=== PATIENT | male | born 1995 | race Caucasian/White ===

== ENCOUNTER 2017-05-20 14:56 | Inpatient (IN) | payer OTHER ==
[~2017-05-20] VITALS: Ht 180.3 cm; Wt 85.2 kg
[~2017-05-20 14:56] MED LIST: PHENYLEPH/NS 1000 MCG/10 ML SYR IV ONE; PROPOFOL 200 MG/20 ML AMP IV ONE; ROCURONIUM INJ 50 MG/5 ML SYRINGE IV PUSH ONE
[2017-05-20] MEDS ORDERED: IOHEXOL 350 MG/ML 10 ML VIAL (for RAD DIAG) IVCONTRAST ONE (14:57)
[2017-05-20] MEDS ORDERED: PROPOFOL 200 MG/20 ML AMP ONE (14:59)
[2017-05-20] MEDS ORDERED: KETAMINE HCL 500 MG/5 ML VIAL ONE (15:03)
[2017-05-20] MEDS ORDERED: PROPOFOL 1000 MG/100 ML INJ 100 ML ONE (15:03)
[2017-05-20 15:05] VITALS: O2SAT 100
[2017-05-20] MEDS ORDERED: ceFAZolin 2 GM PREMIX 50 ML ONE (15:08)
[2017-05-20] MEDS ORDERED: GENTAMICIN 80 MG PREMIX 100 ML ONE (15:08)
[2017-05-20] MEDS ORDERED: SUCCINYLCHOLINE CHLORIDE 100 MG/5 ML SYRINGE ONE (15:16)
[2017-05-20] MEDS ORDERED: ROCURONIUM INJ 50 MG/5 ML VIAL ONE (15:17)
[2017-05-20] MEDS ORDERED: ETOMIDATE 20 MG/10 ML VIAL ONE (15:17)
[2017-05-20 15:22] LABS: AUTOMATED NEUTROPHIL # 10.2 TH/MM3 (1.8-7.7); BASOPHIL # 0.1 TH/MM3 (0-0.2); BASOPHIL % 0.6 % (0.0-2.0); EOSINOPHIL # 0.1 TH/MM3 (0-0.4); EOSINOPHIL % 0.4 % (0.0-4.0); HEMATOCRIT 35.9 % (39.0-51.0); HEMOGLOBIN 11.8 GM/DL (13.0-17.0); LYMPH % 34.8 % (9.0-44.0); LYMPHOCYTE # 6.1 TH/MM3 (1.0-4.8); MEAN CELL VOLUME 84.2 FL (80.0-100.0); MEAN CORPUSCULAR HEMOGLOBIN 27.6 PG (27.0-34.0); MEAN CORPUSCULAR HGB CONC 32.8 % (32.0-36.0); MEAN PLATELET VOLUME 7.5 FL (7.0-11.0); MONO % 5.6 % (0.0-8.0); NEUT % 58.6 % (16.0-70.0); PLATELET COUNT 404 TH/MM3 (150-450); RED BLOOD COUNT 4.26 MIL/MM3 (4.50-5.90); RED CELL DISTRIBUTION WIDTH 14.4 % (11.6-17.2); WHITE BLOOD COUNT 17.5 TH/MM3 (4.0-11.0)
[2017-05-20] MEDS: LACTATED RINGER'S 1000 ML INJ 1,000 ML IV SCH ×2 (15:31→23:31)
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
[2017-05-20 15:43] LABS: INTERNATIONAL NORMALIZED RATIO 1.2 RATIO; PROTHROMBIN TIME - PATIENT 11.8 SEC (9.8-11.6)
[2017-05-20 15:44] LABS: BANDS 1 % (0-6); LYMPHOCYTES 36 % (9-44); MONOCYTES 6 % (0-8); NEUTROPHIL # MANUAL DIFF 10.2 TH/MM3 (1.8-7.7); POLYS (SEG NEUTROPHILS) 57 % (16-70)
[2017-05-20] MEDS ORDERED: CHLORHEXIDINE GLUCONATE 2 % 1 PACK (2 CLOTHS) TOP PRN (15:45)
[2017-05-20] MEDS ORDERED: SODIUM CHLORIDE 0.9% FLUSH 10 ML FLUSH IV FLUSH PRN (15:45)
[2017-05-20] MEDS ORDERED: ENALAPRILAT 1.25 MG/ML VIAL IV PUSH PRN (15:45)
[2017-05-20] MEDS ORDERED: ONDANSETRON HCL 4 MG/2 ML VIAL IV PUSH PRN (15:45)
[2017-05-20] MEDS ORDERED: fentaNYL DRIP 250 ML IV PRN (15:45)
[2017-05-20] MEDS ORDERED: PROPOFOL 1000 MG/100 ML INJ 100 ML IV PRN (15:45)
[2017-05-20] MEDS ORDERED: MISCELLANEOUS NURSING INFORMATION XX SCH (15:45)
[2017-05-20] MEDS ORDERED: MAGNESIUM HYDROXIDE SUSP 30 ML CUP PO PRN (15:45)
[2017-05-20 16:00] VITALS: BP 135/96; PULSE 80; RESP 16; TEMP 95.9; O2SAT 100
[2017-05-20] MEDS: PROPOFOL 1000 MG/100 ML IV PRN ×3 (16:00→21:47)
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
[2017-05-20 16:05] VITALS: O2SAT 100
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
[2017-05-20] MEDS: fentaNYL 2,500 MCG/NS 250 ML IV PRN (16:10)
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
[2017-05-20] MEDS ORDERED: POTASSIUM CHLORIDE 25 MEQ EFFERVESCENT TAB PO PRN (17:15)
[2017-05-20] MEDS ORDERED: MAGNESIUM SULFATE INJ 4 GM in SODIUM CHLORIDE 0.9% INJ 92 ML IV PRN (17:15)
[2017-05-20] MEDS ORDERED: MAGNESIUM SULFATE INJ 2 GM in SODIUM CHLORIDE 0.9% INJ 96 ML IV PRN (17:15)
[2017-05-20] MEDS ORDERED: POTASSIUM PHOSPHATE MONOBASIC 500 MG TAB PO PRN (17:15)
[2017-05-20] MEDS ORDERED: POTASSIUM PHOSPHATE MONOBASIC 500 MG TAB PO/TUBE PRN (17:15)
[2017-05-20] MEDS ORDERED: POTASSIUM PHOSPHATE INJ 30 MMOL in SODIUM CHLOR 0.9% 250 ML INJ 250 ML IV PRN (17:15)
[2017-05-20] MEDS ORDERED: MAGNESIUM OXIDE 400 MG TAB PO PRN (17:15)
[2017-05-20] MEDS ORDERED: SODIUM PHOSPHATE INJ 30 MMOL in SODIUM CHLOR 0.9% 250 ML INJ 240 ML IV PRN (17:15)
[2017-05-20] MEDS ORDERED: POTASSIUM CHLOR 40 MEQ PREMIX 100 ML IV PRN ×2 (17:15)
[2017-05-20] MEDS ORDERED: POTASSIUM CHLOR 20 MEQ PREMIX 100 ML IV PRN ×2 (17:15)
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
[2017-05-20 17:49] LABS: ALKALINE PHOSPHATASE 61 U/L (45-117); TOTAL BILIRUBIN ADULT 0.2 MG/DL (0.2-1.0)
[2017-05-20] MEDS ORDERED: ACETAMINOPHEN 1000 MG/100 ML 100 ML IV ONE (17:56)
[2017-05-20 18:02] LABS: ALBUMIN 3.3 GM/DL (3.4-5.0); ALT (GPT) 62 U/L (12-78); AST (GOT) 72 U/L (15-37); BICARBONATE 23.7 MEQ/L (21.0-32.0); BLOOD UREA NITROGEN 10 MG/DL (7-18); CALCIUM 7.9 MG/DL (8.5-10.1); CHLORIDE 109 MEQ/L (98-107); GLOMERULAR FILTRATION RATE 64 ML/MIN (>89); GLUCOSE,RANDOM 96 MG/DL (74-106); MAGNESIUM 1.7 MG/DL (1.5-2.5); PHOSPHORUS 2.4 MG/DL (2.5-4.9); SODIUM (NA) 140 MEQ/L (136-145)
[2017-05-20] MEDS ORDERED: RASS Change Order XX ONE (18:30)
[2017-05-20] MEDS: MIDAZOLAM 100 MG/NS 100 ML DRIP Premix IV PRN (18:35)
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
[2017-05-20 19:53] VITALS: O2SAT 100
[2017-05-20 20:00] VITALS: BP 104/58; PULSE 96; RESP 16; TEMP 97.3; O2SAT 100
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
[2017-05-20] MEDS ORDERED: DOCUSATE SODIUM 100 MG CAP PO SCH (21:00)
[2017-05-20] MEDS: CHLORHEXIDINE 0.12% (ORAL KIT) 15 ML CUP MT SCH (21:08)
[2017-05-20 22:00] VITALS: O2SAT 100
[2017-05-20] MEDS ORDERED: ceFAZolin INJ 1,000 MG VIAL ONE (22:36)
[2017-05-21] VITALS (16 sets, daily range): BP systolic 82–108; BP diastolic 49–59; PULSE 84–118; RESP 16–18; TEMP 97.2–100.8; O2SAT 100
--- NOTE | 2017-05-21 00:43 | RADRPT ---
EXAM DATE/TIME: 05/20/2017 23:51 [facility] COMPARISON: No previous studies available for comparison. INDICATIONS : External fixation with temporary plate internal fixation of a right tibia fracture. MEDICAL HISTORY : None. SURGICAL HISTORY : None. ENCOUNTER: Subsequent ACUITY: 1 day PAIN SCORE: Non-responsive. LOCATION: Right tibia FINDINGS: 4 spot fluoroscopic images obtained in the operating room during a procedure demonstrates pin related to external fixator overlying the proximal tibia. There is a sideplate along the mid tibia traversin g a fracture. A comminuted fibular fracture is seen. CONCLUSION: Spot fluoroscopic images, as above. Del Wilson MD on May 21, 2017 at 0:40 Board Certified Radiologist. This report was verified electronically.
[2017-05-21] MEDS ORDERED: SODIUM CHLORIDE 0.9% FLUSH 10 ML FLUSH IV FLUSH PRN ×3 (00:45)
[2017-05-21] MEDS ORDERED: MORPHINE SULFATE 8 MG/ML INJ IV PUSH PRN (00:45)
[2017-05-21] MEDS ORDERED: BISACODYL 10 MG SUPP RECTAL PRN ×3 (00:45)
[2017-05-21] MEDS ORDERED: PROMETHAZINE HCL 25 MG TAB PO PRN (00:45)
[2017-05-21] MEDS ORDERED: ZOLPIDEM TARTRATE 5 MG TAB PO PRN (00:45)
[2017-05-21] MEDS ORDERED: Post-op Orders (for Pharmacy) XX ONE ×3 (00:45)
[2017-05-21] MEDS ORDERED: MAGNESIUM HYDROXIDE SUSP 30 ML CUP PO PRN ×3 (00:45)
[2017-05-21] MEDS ORDERED: oxyCODONE/ACETAMINOPHEN 5 MG/325 MG TAB PO PRN ×2 (00:45)
[2017-05-21] MEDS ORDERED: LACTULOSE SYRUP 20 GM/30 ML CUP PO PRN ×3 (00:45)
[2017-05-21] MEDS ORDERED: SENNOSIDES 8.6 MG TAB PO PRN ×3 (00:45)
--- NOTE | 2017-05-21 00:45 | PD.OP ---
cc: Edy Segovia Jr., MD Operative Report Date of Surgery: May 21, 2017 Preoperative Diagnosis: #1 closed right femoral shaft fracture #2 grade 2 open right tibial shaft fracture Postoperative Diagnosis: Same Procedure: #1 irrigation debridement right tibia #2 external fixation right tibia #3 external fixation right femur Anesthesia: Gen. Surgeon: Edy Segovia Motor Overhauler(s): ALEXSANDRA Payne The surgical procedure was assisted by my Advanced Registered Nurse Practitioner. My TANKROOM TENDER presence was necessary throughout this case for the manipulation and positioning of the surgical extremity. My TANKROOM TENDER was assisting me throughout the duration of this procedure. The skill set of an Advance Registered Nurse Practitioner was medically necessary to complete this procedure. During the surgical case, the technology project manager was working at the back table and the Advance Registered Nurse Practitioner was directly assisting me. Resident Surgeon: None Operation and Findings: This patient sustained severe injury to the right lower extremity resulting in right grade 2 open tibial shaft fracture as well as a ipsilateral right femoral shaft fracture. Risk and benefits of surgery were discussed in depth with the patient's mother and consent was confirmed. Surgical site was marked. Patient was brought to operating room and placed on the OR table. Patient was given IV sedation and GETA. Patient received IV antibiotics and timeout procedure was performed. Operative leg was prepped with alcohol followed by Hibiclens and draped in the usual sterile fashion. Procedure started with irrigation and debridement of the right tibia. This anterior tibia wounds where extended. The bone and were delivered. The bone ends as well as the wounds were thoroughly irrigated and debrided with a curette to the extent of periosteal stripping and soft tissue degloving. Two small incisions were made along the anterior tibia and anterior cortex of the distal femur. Soft tissue was dissected bluntly. Cannulas were placed down to the cortex of bone. Pin sites were predrilled. Synthes RYAN-coated pins were placed into the 2 tibia fracture fragments, and femurs. fluoroscopy was used to confirm appropriate pin placement. An external fixator construct was now created with clamps and bars spanning the knee joint.. Next attention was turned to reduction. Traction was applied. Fracture was manipulated. Good alignment of the fracture was obtained. Fluoroscopy was used to confirm appropriate alignment of fracture. The external fixator was now tightened to hold reduction. Sterile dressings were applied. Patient was transferred to ICU intubated. The soft tissue was reevaluated, the compartments were soft and compressible with no signs of compartment syndrome in the RIGHT lower extremity. We will reevaluate the condition of the soft tissue to determine an appropriate time for definitive fixation. IMPLANTS USED Synthes POSTP-OP PLAN OF ACTIVITY Antibiotics: Ancef, vancomycin 48 hours Antiocoagulation: Lovenox Weight bearing status: Nonweightbearing Dressing: Pin site care qday Future procedure planned: in 2 days for IMN right femur retro and tibia Edy Segovia Jr., MD May 21, 2017 00:45
--- NOTE | 2017-05-21 00:51 | RADRPT ---
EXAM DATE/TIME: 05/20/2017 23:51 [facility] COMPARISON: No previous studies available for comparison. INDICATIONS : External fixation of a right femur fracture. MEDICAL HISTORY : None. SURGICAL HISTORY : None. ENCOUNTER: Subsequent ACUITY: 1 day PAIN SCORE: Non-responsive. LOCATION: Right leg FINDINGS: 5 spot fluoroscopic images obtained in the operating room during a procedure demonstrate a pin telma sing the right femur distal to the comminuted fracture site. External fixer pins also overlie the pro ximal tibia. CONCLUSION: Spot fluoroscopic images, as above. Del Wilson MD on May 21, 2017 at 0:48 Board Certified Radiologist. This report was verified electronically.
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
[2017-05-21] MEDS ORDERED: SODIUM CHLOR 0.9% 1000 ML INJ 1,000 ML IV ONE (02:15)
[2017-05-21] MEDS: VANCOMYCIN INJ 1,000 MG in SODIUM CHLOR 0.9% 250 ML INJ 250 ML IV SCH ×2 (02:37→13:16)
[2017-05-21] MEDS: PROPOFOL 1000 MG/100 ML IV PRN ×5 (02:57→20:27)
[2017-05-21] MEDS: CHLORHEXIDINE GLUCONATE 2 % 1 PACK (2 CLOTHS) TOP SCH (04:00)
[2017-05-21 05:08] LABS: AUTOMATED NEUTROPHIL # 4.8 TH/MM3 (1.8-7.7); BASOPHIL % 0.5 % (0.0-2.0); EOSINOPHIL # 0.1 TH/MM3 (0-0.4); EOSINOPHIL % 1.2 % (0.0-4.0); HEMATOCRIT 27.9 % (39.0-51.0); HEMOGLOBIN 9.3 GM/DL (13.0-17.0); LYMPH % 36.8 % (9.0-44.0); LYMPHOCYTE # 3.4 TH/MM3 (1.0-4.8); MEAN CELL VOLUME 83.8 FL (80.0-100.0); MEAN CORPUSCULAR HGB CONC 33.4 % (32.0-36.0); MEAN PLATELET VOLUME 7.5 FL (7.0-11.0); MONO % 9.5 % (0.0-8.0); MONOCYTE # 0.9 TH/MM3 (0-0.9); PLATELET COUNT 267 TH/MM3 (150-450); RED BLOOD COUNT 3.33 MIL/MM3 (4.50-5.90); RED CELL DISTRIBUTION WIDTH 14.6 % (11.6-17.2); WHITE BLOOD COUNT 9.2 TH/MM3 (4.0-11.0)
[2017-05-21 05:37] LABS: BICARBONATE 27.1 MEQ/L (21.0-32.0); CALCIUM 7.9 MG/DL (8.5-10.1); CREATININE 1.1 MG/DL (0.60-1.30)
--- NOTE | 2017-05-21 06:23 | RADRPT ---
EXAM DATE/TIME: 05/21/2017 04:48 [facility] COMPARISON: CT ABDOMEN & PELVIS W CONTRAST, May 20, 2017, 15:30. CT THORAX W CONTRAST, May 20, 2017, 15:30. CHEST SINGLE AP, May 20, 2017, 15:00. INDICATIONS : Short of breath. MEDICAL HISTORY : None. SURGICAL HISTORY : None. ENCOUNTER: Subsequent ACUITY: 2 days PAIN SCORE: 0/10 LOCATION: Bilateral chest FINDINGS: Portable AP view of the chest demonstrates a normal-sized cardiac silhouette. Endotracheal tube remai ns present a nasogastric tube distal tip courses beyond the GE junction. No effusion, consolidation, or pneumothorax is identified. The bones and soft tissues demonstrate no acute finding. CONCLUSION: No acute cardiopulmonary abnormality is identified. Del Wilson MD on May 21, 2017 at 6:20 Board Certified Radiologist. This report was verified electronically.
[2017-05-21] MEDS ORDERED: DIPHTH/TETANUS/ACEL PERTUSSIS (BOOSTER) 0.5 ML VIAL/PFS IM ONE (06:45)
--- NOTE | 2017-05-21 07:27 | PD.ORT.PN ---
Subjective Subjective Remarks POD 1 s/p exfix right femur/tibia intubated/sedated Objective Vitals Vital Signs Date Time Temp Pulse Resp B/P (MAP) Pulse Ox O2 Delivery O2 Flow Rate FiO2 05/21/17 04:10 100 40 05/21/17 04:00 97.5 96 16 96/56 (69) 100 05/21/17 04:00 40 05/21/17 00:33 100 40 05/21/17 00:00 40 05/21/17 00:00 97.2 84 16 93/52 (66) 100 05/20/17 22:00 100 100 05/20/17 22:00 50 05/20/17 20:00 97.3 96 16 104/58 (73) 100 05/20/17 19:53 100 40 05/20/17 16:05 100 50 05/20/17 16:00 95.9 80 16 135/96 (109) 100 05/20/17 16:00 50 05/20/17 16:00 80 05/20/17 15:05 100 AMBU 15.00 100 05/20/17 15:05 100 100 I/O 05/20/17 05/20/17 05/20/17 05/21/17 05/21/17 05/21/17 07:00 15:00 23:00 07:00 15:00 23:00 Intake Total 100 ml 760 ml Output Total 1555 ml Balance 100 ml -795 ml Intake Oral 0 ml IV Total 100 ml 360 ml Other 400 ml Output Urine Total 855 ml Gastric Drainage Total 500 ml Estimated Blood Loss 200 ml Result Diagram: 05/21/17 0430 05/21/17 0430 Other Results Laboratory Tests Test 05/20/17 15:00 Prothromb Time International Ratio 1.2 RATIO Prothrombin Time 11.8 SEC (9.8-11.6) Imaging Last 24 hours Impressions Tibia/Fibula X-Ray 05/21/17 0000 Signed Impressions: Service Date/Time: Saturday, May 20, 2017 23:51 - CONCLUSION: Spot fluoroscopic images, as above. Del Wilson MD Femur X-Ray 05/21/17 0000 Signed Impressions: Service Date/Time: Saturday, May 20, 2017 23:51 - CONCLUSION: Spot fluoroscopic images, as above. Del Wilson MD Chest X-Ray 05/21/17 0000 Signed Impressions: Service Date/Time: Sunday, May 21, 2017 04:48 - CONCLUSION: No acute cardiopulmonary abnormality is identified. Del Wilson MD Maxillofacial CT 05/20/17 1501 Signed Impressions: Service Date/Time: Saturday, May 20, 2017 15:22 - CONCLUSION: Nasal bone fractures and nasal septal fracture suspected with septal deviation. Facial lacerations left perimandibular soft tissues. Possible sebaceous cyst on the right. Antwan Marcelino MD Head CT 05/20/17 1501 Signed Impressions: Service Date/Time: Saturday, May 20, 2017 15:22 - CONCLUSION: 1. No acute intracranial abnormality. 2. Please see the CT facial bones reported separately. Ricky River Jr., MD Chest CT 05/20/17 1501 Signed Impressions: Service Date/Time: Saturday, May 20, 2017 15:30 - CONCLUSION: No acute disease. Antwan Marcelino MD Cervical Spine CT 05/20/17 1501 Signed Impressions: Service Date/Time: Saturday, May 20, 2017 15:22 - CONCLUSION: Normal examination. Antwan Marcelino MD Abdomen/Pelvis CT 05/20/17 1501 Signed Impressions: Service Date/Time: Saturday, May 20, 2017 15:30 - CONCLUSION: Normal examination. Antwan Marcelino MD Objective Remarks RLE: +long leg splint. +exfix. bloody drainage from pin sites. 2+ swelling of lower leg. Assessment & Plan Assessment and Plan 1) Right Femur Fracture 2) Right Tibial Shaft Fx 3) Right Medial Malleolus Fx s/p I&D and Exfix right leg by Dr. Segovia - POD 1 -NWB -Pin care BID -monitor swelling of lower leg. will ice continuously and check swelling throughout day. if swelling worsens, may need to check compartment pressure -sign consents for future surgery with Benigno this week. likely sunday/ Anthony Gama PA/Critical Care Physician PA May 21, 2017 07:27
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
[2017-05-21] MEDS: RESP: ALBUTEROL 2.5 MG/IPRATROPIUM 0.5 MG NEB (SCH) NEB ×3 (07:58→20:08)
[2017-05-21] MEDS: CHLORHEXIDINE 0.12% (ORAL KIT) 15 ML CUP MT SCH ×2 (08:00→20:28)
[2017-05-21] MEDS ORDERED: DOCUSATE SODIUM 50 MG/SENNA 8.6 MG TAB PO SCH ×2 (09:00)
[2017-05-21] MEDS ORDERED: SODIUM CHLORIDE 0.9% FLUSH 10 ML FLUSH IV FLUSH SCH ×2 (09:00)
[2017-05-21] MEDS: GENTAMICIN INJ 80 MG in SODIUM CHLORIDE 0.9% INJ 100 ML IV SCH ×2 (09:42→15:35)
[2017-05-21] MEDS: SODIUM CHLORIDE 0.9% FLUSH 10 ML FLUSH IV FLUSH SCH ×2 (09:46→20:28)
[2017-05-21] MEDS: DOCUSATE SODIUM 50 MG/SENNA 8.6 MG TAB PO SCH ×2 (09:46→20:28)
[2017-05-21] MEDS: LACTATED RINGER'S 1000 ML INJ 1,000 ML IV SCH ×3 (09:47→20:28)
[2017-05-21] MEDS: fentaNYL 2,500 MCG/NS 250 ML IV PRN (10:26)
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
[2017-05-21] MEDS: ENOXAPARIN SODIUM 30 MG/0.3 ML SYRINGE SQ SCH (13:16)
[2017-05-21] MEDS: ACETAMINOPHEN 650 MG/20.3 ML UDC PO PRN (15:35)
[2017-05-21] MEDS: PANTOPRAZOLE SODIUM 40 MG VIAL IVP SCH (15:35)
--- NOTE | 2017-05-21 21:06 | HHI.PR ---
Subjective Remarks pt seen and examined this evening mother/family/nurse at bedside intubated, sedated, vented s/p [facility] - nasal bone fracture/nasal and left facial soft tissue injury/ laceration Objective Vital Signs Date Time Temp Pulse Resp B/P (MAP) Pulse Ox O2 Delivery O2 Flow Rate FiO2 05/21/17 20:08 100 40 05/21/17 18:00 110 05/21/17 16:00 118 05/21/17 16:00 40 05/21/17 16:00 100.8 118 16 96/55 (69) 100 05/21/17 15:07 100 40 05/21/17 14:00 112 05/21/17 12:00 110 05/21/17 12:00 40 05/21/17 12:00 99.7 110 16 108/59 (75) 100 05/21/17 10:13 100 40 05/21/17 10:00 114 05/21/17 08:00 40 05/21/17 08:00 101 05/21/17 08:00 99.0 100 18 92/51 (65) 100 05/21/17 07:30 100 40 05/21/17 04:10 100 40 05/21/17 04:00 97.5 96 16 96/56 (69) 100 05/21/17 04:00 40 05/21/17 00:33 100 40 05/21/17 00:00 40 05/21/17 00:00 97.2 84 16 93/52 (66) 100 05/20/17 22:00 100 100 05/20/17 22:00 50 I/O 05/20/17 05/20/17 05/20/17 05/21/17 05/21/17 05/21/17 07:00 15:00 23:00 07:00 15:00 23:00 Intake Total 100 ml 2110 ml 1902 ml 362 ml Output Total 1555 ml 900 ml Balance 100 ml 555 ml 1902 ml -538 ml Intake Oral 0 ml IV Total 100 ml 1710 ml 1902 ml 302 ml Tube Irrigant 60 ml Other 400 ml Output Urine Total 855 ml 575 ml Gastric Drainage Total 500 ml 325 ml Estimated Blood Loss 200 ml # Bowel Movements 0 Result Diagram: 05/21/17 0430 05/21/17 0430 Objective Remarks nose/left facial soft tissue injury - wound sites hemostatic wounds pink/well perfused, no signs of infection bleeding pus edema no signs of soft tissue necrosis/erythema wet to dry dressing changes q2h nasal fracture stable Assessment and Plan Assessment and Plan s/p [facility] - nasal bone fracture/nasal and left facial soft tissue injury/ laceration --> stable. planned for closed reduction of nasal bone fracture and closure of nasal/ left facial soft tissue injury this afternoon/evening due to multiple emergencies today / and OR staffing; not able to proceed at this time-->unknown time to proceed d/w with family and after exam, plan to proceed tomorrow afternoon. Johann Villarreal DMD May 21, 2017 21:06
[2017-05-21 21:12] LABS: HEMATOCRIT 23.2 % (39.0-51.0); HEMOGLOBIN 7.7 GM/DL (13.0-17.0)
[2017-05-22] VITALS (23 sets, daily range): BP systolic 81–102; BP diastolic 49–56; PULSE 66–114; RESP 16; TEMP 96.1–100.6; O2SAT 100
[2017-05-22] MEDS: ENOXAPARIN SODIUM 30 MG/0.3 ML SYRINGE SQ SCH ×2 (01:00→11:42)
[2017-05-22] MEDS: GENTAMICIN INJ 80 MG in SODIUM CHLORIDE 0.9% INJ 100 ML IV SCH ×4 (01:01→23:20)
[2017-05-22] MEDS: CHLORHEXIDINE GLUCONATE 2 % 1 PACK (2 CLOTHS) TOP SCH ×2 (02:06→20:36)
[2017-05-22] MEDS: MIDAZOLAM 100 MG/NS 100 ML DRIP Premix IV PRN ×2 (02:18→23:00)
[2017-05-22] MEDS: VANCOMYCIN INJ 1,000 MG in SODIUM CHLOR 0.9% 250 ML INJ 250 ML IV SCH ×2 (02:48→13:52)
[2017-05-22] MEDS: RESP: ALBUTEROL 2.5 MG/IPRATROPIUM 0.5 MG NEB (SCH) NEB ×4 (03:35→21:03)
[2017-05-22] MEDS: PROPOFOL 1000 MG/100 ML IV PRN ×4 (06:42→23:44)
[2017-05-22 06:51] LABS: AUTOMATED NEUTROPHIL # 3.5 TH/MM3 (1.8-7.7); BASOPHIL % 0.3 % (0.0-2.0); EOSINOPHIL # 0.1 TH/MM3 (0-0.4); EOSINOPHIL % 1.4 % (0.0-4.0); HEMATOCRIT 31.1 % (39.0-51.0); HEMOGLOBIN 10.4 GM/DL (13.0-17.0); LYMPHOCYTE # 2.3 TH/MM3 (1.0-4.8); MEAN CELL VOLUME 83.4 FL (80.0-100.0); MEAN CORPUSCULAR HEMOGLOBIN 27.9 PG (27.0-34.0); MEAN CORPUSCULAR HGB CONC 33.5 % (32.0-36.0); MEAN PLATELET VOLUME 8.6 FL (7.0-11.0); MONO % 9.7 % (0.0-8.0); MONOCYTE # 0.6 TH/MM3 (0-0.9); NEUT % 53.6 % (16.0-70.0); PLATELET COUNT 188 TH/MM3 (150-450); RED BLOOD COUNT 3.73 MIL/MM3 (4.50-5.90); RED CELL DISTRIBUTION WIDTH 14.2 % (11.6-17.2); WHITE BLOOD COUNT 6.5 TH/MM3 (4.0-11.0)
[2017-05-22 07:23] LABS: BICARBONATE 27.2 MEQ/L (21.0-32.0); CALCIUM 8.2 MG/DL (8.5-10.1); CREATININE 0.95 MG/DL (0.60-1.30)
[2017-05-22] MEDS: LACTATED RINGER'S 1000 ML INJ 1,000 ML IV SCH (07:31)
[2017-05-22] MEDS: fentaNYL 2,500 MCG/NS 250 ML IV PRN ×2 (07:31→16:19)
[2017-05-22] MEDS: CHLORHEXIDINE 0.12% (ORAL KIT) 15 ML CUP MT SCH ×2 (07:45→20:34)
[2017-05-22] MEDS: DOCUSATE SODIUM 50 MG/SENNA 8.6 MG TAB PO SCH ×2 (08:01→20:34)
[2017-05-22] MEDS: SODIUM CHLORIDE 0.9% FLUSH 10 ML FLUSH IV FLUSH SCH ×2 (08:01→20:34)
--- NOTE | 2017-05-22 08:24 | PD.OP ---
Operative Report Date of Surgery: May 22, 2017 Preoperative Diagnosis: (1) Tibia/fibula fracture (2) Femur fracture Postoperative Diagnosis: (1) Tibia/fibula fracture (2) Femur fracture Procedure: Compartment pressure check right lower leg Surgeon: Anthony Gama Wetland Scientist(s): none Operation and Findings: Right lower extremity was prepped with alcohol and betadine to the lateral leg. After consent was given by his mother, the anterior compartment pressure was checked using a Devtap compartment pressure gauge. The pressure readings of the anterior compartment were 36,38,42 mmHg. The lateral compartment was then checked with readings of 32,34,34 mmHg. His last recorded BP was 90/55 mmHg. The area was cleaned again with alcohol and sterile bandage applied. The patient tolerated procedure well. Anthony Gama/First Mari JOSEPH May 22, 2017 08:24
[2017-05-22] MEDS ORDERED: DEXAMETHASONE SOD PHOS 20 MG/5 ML VIAL IV PUSH ONE (08:45)
[2017-05-22] MEDS ORDERED: FUROSEMIDE 40 MG/4 ML VIAL IV PUSH ONE (09:30)
--- NOTE | 2017-05-22 11:27 | PD.ORT.PN ---
Subjective Subjective Remarks POD 2 s/p exfix right femur/tibia intubated/sedated Objective Vitals Vital Signs Date Time Temp Pulse Resp B/P (MAP) Pulse Ox O2 Delivery O2 Flow Rate FiO2 05/22/17 08:51 100 40 05/22/17 07:00 100 Mechanical Ventilator 40 05/22/17 06:00 100 05/22/17 04:00 100.4 98 16 93/53 (66) 100 05/22/17 04:00 40 05/22/17 04:00 98 05/22/17 03:35 100 40 05/22/17 03:02 100.6 106 16 96/52 100 05/22/17 02:39 100.6 110 16 102/56 100 05/22/17 02:01 100.6 112 16 98/54 100 05/22/17 02:00 112 05/22/17 01:44 100.6 114 16 95/54 100 05/22/17 01:02 100 40 05/22/17 00:00 40 05/22/17 00:00 108 05/22/17 00:00 100.0 108 16 94/53 (67) 100 05/21/17 22:00 104 05/21/17 20:08 100 40 05/21/17 20:00 100.0 104 16 82/49 (60) 100 05/21/17 20:00 104 05/21/17 20:00 40 05/21/17 19:00 100 Mechanical Ventilator 40 05/21/17 18:00 110 05/21/17 16:00 118 05/21/17 16:00 40 05/21/17 16:00 100.8 118 16 96/55 (69) 100 05/21/17 15:07 100 40 05/21/17 14:00 112 05/21/17 12:00 110 05/21/17 12:00 40 05/21/17 12:00 99.7 110 16 108/59 (75) 100 I/O 05/21/17 05/21/17 05/21/17 05/22/17 05/22/17 05/22/17 07:00 15:00 23:00 07:00 15:00 23:00 Intake Total 2110 ml 1902 ml 1462 ml 2050 ml 1250 ml Output Total 1555 ml 900 ml 750 ml Balance 555 ml 1902 ml 562 ml 1300 ml 1250 ml IV Total 1710 ml 1902 ml 1402 ml 970 ml 1250 ml Packed Cells 800 ml Blood Product IV Normal Saline Flush 250 ml Tube Irrigant 60 ml 30 ml Other 400 ml Output Urine Total 855 ml 575 ml 650 ml Gastric Drainage Total 500 ml 325 ml 100 ml Estimated Blood Loss 200 ml # Bowel Movements 0 0 Result Diagram: 05/22/17 0603 05/22/17 0603 Imaging Last 24 hours Impressions Tibia/Fibula X-Ray 05/21/17 0000 Signed Impressions: Service Date/Time: Saturday, May 20, 2017 23:51 - CONCLUSION: Spot fluoroscopic images, as above. Del Wilson MD Femur X-Ray 05/21/17 0000 Signed Impressions: Service Date/Time: Saturday, May 20, 2017 23:51 - CONCLUSION: Spot fluoroscopic images, as above. Del Wilson MD Chest X-Ray 05/21/17 0000 Signed Impressions: Service Date/Time: Sunday, May 21, 2017 04:48 - CONCLUSION: No acute cardiopulmonary abnormality is identified. Del Wilson MD Maxillofacial CT 05/20/17 1501 Signed Impressions: Service Date/Time: Saturday, May 20, 2017 15:22 - CONCLUSION: Nasal bone fractures and nasal septal fracture suspected with septal deviation. Facial lacerations left perimandibular soft tissues. Possible sebaceous cyst on the right. Antwan Marcelino MD Head CT 05/20/17 1501 Signed Impressions: Service Date/Time: Saturday, May 20, 2017 15:22 - CONCLUSION: 1. No acute intracranial abnormality. 2. Please see the CT facial bones reported separately. Ricky River Jr., MD Chest CT 05/20/17 1501 Signed Impressions: Service Date/Time: Saturday, May 20, 2017 15:30 - CONCLUSION: No acute disease. Antwan Marcelino MD Cervical Spine CT 05/20/17 1501 Signed Impressions: Service Date/Time: Saturday, May 20, 2017 15:22 - CONCLUSION: Normal examination. Antwan Marcelino MD Abdomen/Pelvis CT 05/20/17 1501 Signed Impressions: Service Date/Time: Saturday, May 20, 2017 15:30 - CONCLUSION: Normal examination. Antwan Marcelino MD Procedures Compartment pressures checked twice today: 1st check: -Anterior compartment : 36,38,42 mmHg -Lateral Comparment: 32,34,34 mmHg 2nd Check: -Anterior Compartment: 30, 31, 30 mmHg -Lateral Compartment: 28, 29, 30 mmHg MAP - 86 BP 116/71 Objective Remarks RLE: +long leg splint. +exfix. bloody drainage from pin sites. 2+ swelling of lower leg. Assessment & Plan Assessment and Plan 1) Right Femur Fracture 2) Right Tibial Shaft Fx 3) Right Medial Malleolus Fx s/p I&D and Exfix right leg by Dr. Segovia - POD 2 -NWB -Pin care BID -compartment pressures checked twice today at bedside. After first check, patient was elevated, given decadron 10mg, iced and rechecked 1hr later. pressures improved on the second check. -pressures are improving. would continue to elevate and ice. do not anticipate need for fasciotomy today. if pressure fail to improve, would consider. will recheck tomorrow -plan for possible IMN of right femur and tibia Anthony Gama/Sourcing Coordinator JAKE May 22, 2017 11:27
[2017-05-22] MEDS ORDERED: DEXAMETHASONE SOD PHOS 4 MG/ML VIAL IV ONE (12:00)
[2017-05-22] MEDS ORDERED: PHENYLEPH/NS 1000 MCG/10 ML SYR IV ONE (12:00)
[2017-05-22] MEDS ORDERED: ROCURONIUM INJ 50 MG/5 ML SYRINGE IV PUSH ONE (12:00)
[2017-05-22] MEDS ORDERED: LIDOCAINE 2%/EPINEPHrine PF 1:200,000 20ML SDV ONE (13:28)
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
[2017-05-22] MEDS: PANTOPRAZOLE SODIUM 40 MG VIAL IVP SCH (15:38)
[2017-05-22] MEDS ORDERED: ALBUMIN 5% INJ 250 ML IV ONE ×2 (15:53→15:54)
[2017-05-22] MEDS ORDERED: ALBUMIN 5% INJ 500 ML IV ONE ×2 (16:00)
[2017-05-22 16:22] LABS: HEMATOCRIT 27.6 % (39.0-51.0); HEMOGLOBIN 9.5 GM/DL (13.0-17.0)
[2017-05-22] MEDS ORDERED: BACITRACIN TOP OINT 15 GM TUBE ONE (17:04)
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
[2017-05-23] VITALS (18 sets, daily range): BP systolic 90–141; BP diastolic 51–63; PULSE 72–150; RESP 16; TEMP 97.3–102.7; O2SAT 98–100
[2017-05-23] MEDS: ENOXAPARIN SODIUM 30 MG/0.3 ML SYRINGE SQ SCH (03:02)
[2017-05-23] MEDS: RESP: ALBUTEROL 2.5 MG/IPRATROPIUM 0.5 MG NEB (SCH) NEB ×4 (03:15→21:46)
[2017-05-23] MEDS: LACTATED RINGER'S 1000 ML INJ 1,000 ML IV SCH ×2 (04:20→21:30)
[2017-05-23 05:02] LABS: AUTOMATED NEUTROPHIL # 9.1 TH/MM3 (1.8-7.7); BASOPHIL % 0.1 % (0.0-2.0); HEMATOCRIT 23.6 % (39.0-51.0); HEMOGLOBIN 8.3 GM/DL (13.0-17.0); LYMPH % 5.6 % (9.0-44.0); LYMPHOCYTE # 0.6 TH/MM3 (1.0-4.8); MEAN CELL VOLUME 81.4 FL (80.0-100.0); MEAN CORPUSCULAR HEMOGLOBIN 28.8 PG (27.0-34.0); MEAN CORPUSCULAR HGB CONC 35.3 % (32.0-36.0); MONO % 7.1 % (0.0-8.0); MONOCYTE # 0.7 TH/MM3 (0-0.9); NEUT % 87.2 % (16.0-70.0); PLATELET COUNT 226 TH/MM3 (150-450); RED CELL DISTRIBUTION WIDTH 14.1 % (11.6-17.2); WHITE BLOOD COUNT 10.5 TH/MM3 (4.0-11.0)
[2017-05-23 05:42] LABS: BICARBONATE 27.6 MEQ/L (21.0-32.0); CALCIUM 8.9 MG/DL (8.5-10.1); CREATININE 0.88 MG/DL (0.60-1.30)
--- NOTE | 2017-05-23 07:10 | PD.ORT.PN ---
Subjective Subjective Remarks Intubated but stable. No new changes Objective Vitals Vital Signs Date Time Temp Pulse Resp B/P (MAP) Pulse Ox O2 Delivery O2 Flow Rate FiO2 05/23/17 06:00 75 05/23/17 04:00 84 05/23/17 04:00 40 05/23/17 04:00 97.9 84 16 91/52 (65) 100 05/23/17 03:17 100 40 05/23/17 02:00 82 05/23/17 00:00 98.6 82 16 94/51 (65) 100 05/23/17 00:00 40 05/23/17 00:00 82 05/22/17 23:25 100 40 05/22/17 22:00 78 05/22/17 20:00 40 05/22/17 20:00 96.1 66 16 90/51 (64) 100 05/22/17 20:00 66 05/22/17 19:23 100 40 05/22/17 19:00 100 Mechanical Ventilator 40 05/22/17 18:00 72 05/22/17 16:10 100 100 05/22/17 16:00 40 05/22/17 16:00 74 05/22/17 16:00 97.3 74 16 81/49 (60) 100 05/22/17 15:32 100 40 05/22/17 14:00 88 05/22/17 12:00 99.3 95 16 100/56 (71) 100 05/22/17 12:00 95 05/22/17 12:00 40 05/22/17 10:00 98 05/22/17 08:51 100 40 05/22/17 08:00 100.4 98 16 98/55 (69) 100 05/22/17 08:00 101 05/22/17 08:00 40 I/O 05/22/17 05/22/17 05/22/17 05/23/17 05/23/17 05/23/17 07:00 15:00 23:00 07:00 15:00 23:00 Intake Total 2050 ml 1602 ml 2662 ml 202 ml Output Total 750 ml 4425 ml Balance 1300 ml 1602 ml -1763 ml 202 ml IV Total 970 ml 1602 ml 1152 ml 202 ml Packed Cells 800 ml Blood Product IV Normal Saline Flush 250 ml Tube Irrigant 30 ml 60 ml Other 1450 ml Output Urine Total 650 ml 4350 ml Gastric Drainage Total 100 ml 75 ml # Bowel Movements 0 0 Result Diagram: 05/23/175 05/23/17 0445 Imaging Last 24 hours Impressions Tibia/Fibula X-Ray 05/21/17 0000 Signed Impressions: Service Date/Time: Saturday, May 20, 2017 23:51 - CONCLUSION: Spot fluoroscopic images, as above. Del Wilson MD Femur X-Ray 05/21/17 0000 Signed Impressions: Service Date/Time: Saturday, May 20, 2017 23:51 - CONCLUSION: Spot fluoroscopic images, as above. Del Wilson MD Chest X-Ray 05/21/17 0000 Signed Impressions: Service Date/Time: Sunday, May 21, 2017 04:48 - CONCLUSION: No acute cardiopulmonary abnormality is identified. Del Wilson MD Maxillofacial CT 05/20/17 1501 Signed Impressions: Service Date/Time: Saturday, May 20, 2017 15:22 - CONCLUSION: Nasal bone fractures and nasal septal fracture suspected with septal deviation. Facial lacerations left perimandibular soft tissues. Possible sebaceous cyst on the right. Antwan Marcelino MD Head CT 05/20/17 1501 Signed Impressions: Service Date/Time: Saturday, May 20, 2017 15:22 - CONCLUSION: 1. No acute intracranial abnormality. 2. Please see the CT facial bones reported separately. Ricky River Jr., MD Chest CT 05/20/17 150 Signed Impressions: Service Date/Time: Saturday, May 20, 2017 15:30 - CONCLUSION: No acute disease. Antwan Marcelino MD Cervical Spine CT 05/20/17 1501 Signed Impressions: Service Date/Time: Saturday, May 20, 2017 15:22 - CONCLUSION: Normal examination. Antwan Marcelino MD Abdomen/Pelvis CT 05/20/17 1501 Signed Impressions: Service Date/Time: Saturday, May 20, 2017 15:30 - CONCLUSION: Normal examination. Antwan Marcelino MD Procedures Compartment pressures checked twice today: 1st check: -Anterior compartment : 36,38,42 mmHg -Lateral Comparment: 32,34,34 mmHg 2nd Check: -Anterior Compartment: 30, 31, 30 mmHg -Lateral Compartment: 28, 29, 30 mmHg MAP - 86 BP 116/71 Objective Remarks RLE: +long leg splint. +exfix. bloody drainage from pin sites. 2+ swelling of lower leg. Assessment & Plan Assessment and Plan 1) Right Femur Fracture 2) Right Tibial Shaft Fx 3) Right Medial Malleolus Fx s/p I&D and Exfix right leg by Dr. Segovia - POD 3 -NWB -Pin care BID Swelling is continuing to improve over right lower leg. We will continue to ice and elevate -plan for possible IMN of right femur and tibia tomorrow if stable and swelling is continuing to improve. We will continue to ensure nothing by mouth. If he is still too swollen for surgery tomorrow we will hopefully plan for Sunday Davidson Montalvo Jr. May 23, 2017 07:10
[2017-05-23] MEDS: GENTAMICIN INJ 80 MG in SODIUM CHLORIDE 0.9% INJ 100 ML IV SCH ×2 (08:59→15:42)
[2017-05-23] MEDS: CHLORHEXIDINE 0.12% (ORAL KIT) 15 ML CUP MT SCH ×2 (08:59→20:00)
[2017-05-23] MEDS: SODIUM CHLORIDE 0.9% FLUSH 10 ML FLUSH IV FLUSH SCH ×2 (08:59→22:27)
[2017-05-23] MEDS: DOCUSATE SODIUM 50 MG/SENNA 8.6 MG TAB PO SCH ×2 (09:00→22:28)
[2017-05-23] MEDS: LACTULOSE SYRUP 20 GM/30 ML CUP PO SCH (09:00)
[2017-05-23] MEDS: MAGNESIUM HYDROXIDE SUSP 30 ML CUP PO SCH ×2 (09:00→22:28)
[2017-05-23] MEDS: KETOROLAC TROMETHAMINE 30 MG/ML (IVP) VIAL IV PUSH SCH ×2 (09:06→15:42)
[2017-05-23] MEDS: PROPOFOL 1000 MG/100 ML IV PRN ×3 (09:07→21:28)
--- NOTE | 2017-05-23 09:40 | RADRPT ---
EXAM DATE/TIME: 05/23/2017 08:56 [facility] COMPARISON: CHEST SINGLE AP, May 21, 2017, 4:48. INDICATIONS : Short of breath. MEDICAL HISTORY : None. SURGICAL HISTORY : None. ENCOUNTER: Subsequent ACUITY: 3 days PAIN SCORE: Non-responsive. LOCATION: Bilateral chest FINDINGS: The endotracheal tube is in excellent position. There is a nasogastric tube present. It is in satisfa ctory position. The heart is normal in size. The lungs are clear. The visualized bony structures are grossly intact. CONCLUSION: 1. Support equipment in good position. No acute abnormality. Jacky Denson MD on May 23, 2017 at 9:37 Board Certified Radiologist. This report was verified electronically.
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
[2017-05-23] MEDS ORDERED: FUROSEMIDE 20 MG/2 ML VIAL IV PUSH ONE (14:45)
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
[2017-05-23] MEDS: PANTOPRAZOLE SODIUM 40 MG VIAL IVP SCH (15:41)
[2017-05-23] MEDS: MIDAZOLAM 100 MG/NS 100 ML DRIP Premix IV PRN (18:49)
[2017-05-23] MEDS: fentaNYL 2,500 MCG/NS 250 ML IV PRN (18:50)
--- NOTE | 2017-05-23 20:47 | HHI.PR ---
Subjective Remarks pt seen and examined this morning mother/nurse at bedside intubated, sedated, vented s/p custodial - nasal bone fracture/nasal and left facial soft tissue injury/ laceration POD 1 s/p repair of nasal degloving injury- involving the nasal septum, closure of nasal/left face laceration Objective Vital Signs Date Time Temp Pulse Resp B/P (MAP) Pulse Ox O2 Delivery O2 Flow Rate FiO2 05/23/17 19:32 100 40 05/23/17 18:00 92 05/23/17 16:42 16 05/23/17 16:00 40 05/23/17 16:00 84 05/23/17 16:00 97.9 84 16 101/55 (70) 100 05/23/17 15:26 99 40 05/23/17 14:00 87 05/23/17 12:00 97.3 89 16 113/60 (77) 100 05/23/17 12:00 89 05/23/17 12:00 40 05/23/17 11:36 100 40 05/23/17 10:00 72 05/23/17 08:00 40 05/23/17 08:00 97.7 77 16 90/52 (65) 100 05/23/17 08:00 77 05/23/17 07:47 100 40 05/23/17 07:00 100 Mechanical Ventilator 40 05/23/17 06:00 75 05/23/17 04:00 84 05/23/17 04:00 40 05/23/17 04:00 97.9 84 16 91/52 (65) 100 05/23/17 03:17 100 40 05/23/17 02:00 82 05/23/17 00:00 98.6 82 16 94/51 (65) 100 05/23/17 00:00 40 05/23/17 00:00 82 05/22/17 23:25 100 40 05/22/17 22:00 78 I/O 05/22/17 05/22/17 05/22/17 05/23/17 05/23/17 05/23/17 07:00 15:00 23:00 07:00 15:00 23:00 Intake Total 2050 ml 1602 ml 2662 ml 1419 ml 126 ml 462 ml Output Total 750 ml 4425 ml 1310 ml 810 ml Balance 1300 ml 1602 ml -1763 ml 109 ml 126 ml -348 ml IV Total 970 ml 1602 ml 1152 ml 1389 ml 126 ml 202 ml Tube Feeding 60 ml Packed Cells 800 ml Blood Product IV Normal Saline Flush 250 ml Tube Irrigant 30 ml 60 ml 30 ml 200 ml Other 1450 ml Output Urine Total 650 ml 4350 ml 1300 ml 800 ml Gastric Drainage Total 100 ml 75 ml 10 ml 10 ml # Bowel Movements 0 0 0 0 Result Diagram: 05/23/1744405/23/17444 Objective Remarks nose/left facial soft tissue injury - wound sites hemostatic wounds pink/well perfused, no signs of infection bleeding pus edema nasal splint in place all wound margins well approximated, sutures intact good facial/nasal projection Assessment and Plan Assessment and Plan s/p custodial - nasal bone fracture/nasal and left facial soft tissue injury/ laceration - POD 1 s/p repair of nasal degloving injury- involving the nasal septum, closure of nasal/left face laceration stable from oms standpoint continue supportive care Johann Villarreal DMD May 23, 2017 20:47
[2017-05-24] VITALS (17 sets, daily range): BP systolic 89–130; BP diastolic 47–60; PULSE 88–119; RESP 16–18; TEMP 99–101.8; O2SAT 97–100
[2017-05-24] MEDS: PROPOFOL 1000 MG/100 ML IV PRN ×5 (02:19→23:05)
[2017-05-24] MEDS: RESP: ALBUTEROL 2.5 MG/IPRATROPIUM 0.5 MG NEB (SCH) NEB ×4 (02:50→20:29)
[2017-05-24] MEDS: CHLORHEXIDINE GLUCONATE 2 % 1 PACK (2 CLOTHS) TOP SCH (04:00)
[2017-05-24 04:06] LABS: AUTOMATED NEUTROPHIL # 8.1 TH/MM3 (1.8-7.7); BASOPHIL % 0.1 % (0.0-2.0); HEMATOCRIT 23.2 % (39.0-51.0); HEMOGLOBIN 7.9 GM/DL (13.0-17.0); LYMPH % 11.8 % (9.0-44.0); LYMPHOCYTE # 1.2 TH/MM3 (1.0-4.8); MEAN CELL VOLUME 83.3 FL (80.0-100.0); MEAN CORPUSCULAR HEMOGLOBIN 28.6 PG (27.0-34.0); MEAN CORPUSCULAR HGB CONC 34.3 % (32.0-36.0); MEAN PLATELET VOLUME 8.3 FL (7.0-11.0); MONO % 9.9 % (0.0-8.0); NEUT % 78.2 % (16.0-70.0); PLATELET COUNT 248 TH/MM3 (150-450); RED BLOOD COUNT 2.78 MIL/MM3 (4.50-5.90); WHITE BLOOD COUNT 10.4 TH/MM3 (4.0-11.0)
[2017-05-24 04:29] LABS: BICARBONATE 30.5 MEQ/L (21.0-32.0); CALCIUM 8.5 MG/DL (8.5-10.1); CREATININE 0.97 MG/DL (0.60-1.30)
[2017-05-24] MEDS: MIDAZOLAM 100 MG/NS 100 ML DRIP Premix IV PRN ×3 (05:19→20:41)
[2017-05-24] MEDS: LACTATED RINGER'S 1000 ML INJ 1,000 ML IV SCH ×2 (05:21→17:27)
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
--- NOTE | 2017-05-24 08:12 | PD.ORT.PN ---
Subjective Subjective Remarks POD 4 s/p exfix right femur/tibia intubated/sedated. getting agitated. Objective Vitals Vital Signs Date Time Temp Pulse Resp B/P (MAP) Pulse Ox O2 Delivery O2 Flow Rate FiO2 05/24/17 07:53 100 40 05/24/17 07:00 100 Mechanical Ventilator 40 05/24/17 06:00 88 05/24/17 04:00 99.7 104 16 89/57 (68) 100 05/24/17 04:00 91 05/24/17 04:00 40 05/24/17 02:46 100 40 05/24/17 02:00 105 05/24/17 00:00 101.8 109 16 94/47 (63) 99 05/24/17 00:00 40 05/24/17 00:00 119 05/23/17 23:30 99 40 05/23/17 22:00 126 05/23/17 22:00 102.7 150 16 141/63 (89) 98 05/23/17 20:00 40 05/23/17 20:00 99.7 102 16 117/59 (78) 100 05/23/17 20:00 96 05/23/17 19:32 100 40 05/23/17 19:00 100 Mechanical Ventilator 40 05/23/17 18:00 92 05/23/17 16:42 16 05/23/17 16:00 40 05/23/17 16:00 84 05/23/17 16:00 97.9 84 16 101/55 (70) 100 05/23/17 15:26 99 40 05/23/17 14:00 87 05/23/17 12:00 97.3 89 16 113/60 (77) 100 05/23/17 12:00 89 05/23/17 12:00 40 05/23/17 11:36 100 40 05/23/17 10:00 72 I/O 05/23/17 05/23/17 05/23/17 05/24/17 05/24/17 05/24/17 07:00 15:00 23:00 07:00 15:00 23:00 Intake Total 1419 ml 126 ml 1562 ml 160 ml Output Total 1310 ml 810 ml 325 ml Balance 109 ml 126 ml 752 ml -165 ml IV Total 1389 ml 126 ml 1302 ml Tube Feeding 60 ml Tube Irrigant 30 ml 200 ml 100 ml Other 60 ml Output Urine Total 1300 ml 800 ml 325 ml Gastric Drainage Total 10 ml 10 ml # Bowel Movements 0 0 0 Result Diagram: 05/24/1734505/24/17345 Imaging Last 24 hours Impressions Tibia/Fibula X-Ray 05/21/17 0000 Signed Impressions: Service Date/Time: Saturday, May 20, 2017 23:51 - CONCLUSION: Spot fluoroscopic images, as above. Del Wilson MD Femur X-Ray 05/21/17 0000 Signed Impressions: Service Date/Time: Saturday, May 20, 2017 23:51 - CONCLUSION: Spot fluoroscopic images, as above. Del Wilson MD Chest X-Ray 05/21/17 0000 Signed Impressions: Service Date/Time: Sunday, May 21, 2017 04:48 - CONCLUSION: No acute cardiopulmonary abnormality is identified. Del Wilson MD Maxillofacial CT 05/20/17 150 Signed Impressions: Service Date/Time: Saturday, May 20, 2017 15:22 - CONCLUSION: Nasal bone fractures and nasal septal fracture suspected with septal deviation. Facial lacerations left perimandibular soft tissues. Possible sebaceous cyst on the right. Antwan Marcelino MD Head CT 05/20/17 150 Signed Impressions: Service Date/Time: Saturday, May 20, 2017 15:22 - CONCLUSION: 1. No acute intracranial abnormality. 2. Please see the CT facial bones reported separately. Ricky River Jr., MD Chest CT 05/20/17 150 Signed Impressions: Service Date/Time: Saturday, May 20, 2017 15:30 - CONCLUSION: No acute disease. Antwan Marcelino MD Cervical Spine CT 05/20/17 150 Signed Impressions: Service Date/Time: Saturday, May 20, 2017 15:22 - CONCLUSION: Normal examination. Antwan Marcelino MD Abdomen/Pelvis CT 05/20/17 150 Signed Impressions: Service Date/Time: Saturday, May 20, 2017 15:30 - CONCLUSION: Normal examination. Antwan Marcelino MD Procedures Compartment pressures checked twice today: 1st check: -Anterior compartment : 36,38,42 mmHg -Lateral Comparment: 32,34,34 mmHg 2nd Check: -Anterior Compartment: 30, 31, 30 mmHg -Lateral Compartment: 28, 29, 30 mmHg MAP - 86 BP 116/71 Objective Remarks RLE: +long leg splint. +exfix. bloody drainage from pin sites. 2+ swelling of lower leg. swelling improving Assessment & Plan Assessment and Plan 1) Right Femur Fracture 2) Right Tibial Shaft Fx 3) Right Medial Malleolus Fx s/p I&D and Exfix right leg by Dr. Segovia - POD 4 -NWB -Pin care BID -Swelling is continuing to improve over right lower leg. We will continue to ice and elevate -anticipate IMN of femur and tibia on Sunday. would prefer leave patient intubated 1 more day and plan for extubation in OR tomorrow. if for some reason unable to go to surgery tomorrow, would extubate on floor. but assuming goes to surgery tomorrow, plan to leave intubated. Anthony Gama/Limnologist PA May 24, 2017 08:12
[2017-05-24] MEDS: CHLORHEXIDINE 0.12% (ORAL KIT) 15 ML CUP MT SCH ×2 (08:17→20:41)
[2017-05-24] MEDS: fentaNYL 2,500 MCG/NS 250 ML IV PRN ×2 (08:17→20:40)
[2017-05-24] MEDS: GENTAMICIN INJ 80 MG in SODIUM CHLORIDE 0.9% INJ 100 ML IV SCH ×5 (08:17→23:05)
[2017-05-24] MEDS: LACTULOSE SYRUP 20 GM/30 ML CUP PO SCH (08:18)
[2017-05-24] MEDS: DOCUSATE SODIUM 50 MG/SENNA 8.6 MG TAB PO SCH ×2 (08:18→20:42)
[2017-05-24] MEDS: SODIUM CHLORIDE 0.9% FLUSH 10 ML FLUSH IV FLUSH SCH ×2 (08:18→20:41)
[2017-05-24] MEDS: MAGNESIUM HYDROXIDE SUSP 30 ML CUP PO SCH ×2 (08:18→20:41)
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
[2017-05-24] MEDS: ACETAMINOPHEN 650 MG/20.3 ML UDC PO PRN ×2 (14:53→20:59)
[2017-05-24] MEDS: PANTOPRAZOLE SODIUM 40 MG VIAL IVP SCH (15:50)
[2017-05-25] VITALS (19 sets, daily range): BP systolic 100–128; BP diastolic 53–68; PULSE 97–115; RESP 16–30; TEMP 98.8–101.1; O2SAT 92–100
[2017-05-25] MEDS: LACTATED RINGER'S 1000 ML INJ 1,000 ML IV SCH ×2 (02:07→21:26)
[2017-05-25] MEDS: CHLORHEXIDINE GLUCONATE 2 % 1 PACK (2 CLOTHS) TOP SCH (02:08)
[2017-05-25 04:07] LABS: AUTOMATED NEUTROPHIL # 7.2 TH/MM3 (1.8-7.7); BASOPHIL % 0.3 % (0.0-2.0); EOSINOPHIL # 0.1 TH/MM3 (0-0.4); HEMOGLOBIN 7.7 GM/DL (13.0-17.0); LYMPHOCYTE # 1.3 TH/MM3 (1.0-4.8); MEAN CELL VOLUME 82.6 FL (80.0-100.0); MEAN CORPUSCULAR HGB CONC 35.1 % (32.0-36.0); MEAN PLATELET VOLUME 8.1 FL (7.0-11.0); MONO % 9.8 % (0.0-8.0); MONOCYTE # 0.9 TH/MM3 (0-0.9); NEUT % 74.9 % (16.0-70.0); PLATELET COUNT 252 TH/MM3 (150-450); RED BLOOD COUNT 2.66 MIL/MM3 (4.50-5.90); RED CELL DISTRIBUTION WIDTH 14.1 % (11.6-17.2); WHITE BLOOD COUNT 9.6 TH/MM3 (4.0-11.0)
[2017-05-25] MEDS: RESP: ALBUTEROL 2.5 MG/IPRATROPIUM 0.5 MG NEB (SCH) NEB (04:12)
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
[2017-05-25 04:27] LABS: BICARBONATE 19.9 MEQ/L (21.0-32.0); CALCIUM 8.1 MG/DL (8.5-10.1); CREATININE 0.79 MG/DL (0.60-1.30)
[2017-05-25] MEDS: PROPOFOL 1000 MG/100 ML IV PRN ×5 (05:17→23:42)
[2017-05-25] MEDS: ACETAMINOPHEN 650 MG/20.3 ML UDC PO PRN ×2 (05:33→18:42)
[2017-05-25] MEDS: fentaNYL 2,500 MCG/NS 250 ML IV PRN ×2 (05:34→20:06)
--- NOTE | 2017-05-25 07:36 | PD.ORT.PN ---
Subjective Subjective Remarks POD 5 s/p exfix right femur/tibia intubated/sedated. getting agitated. Objective Vitals Vital Signs Date Time Temp Pulse Resp B/P (MAP) Pulse Ox O2 Delivery O2 Flow Rate FiO2 05/25/17 06:00 101 05/25/17 04:03 95 40 05/25/17 04:00 100.8 99 16 102/56 (71) 93 05/25/17 04:00 99 05/25/17 04:00 40 05/25/17 02:00 107 05/25/17 00:15 100 40 05/25/17 00:00 101.1 102 16 100/53 (69) 99 05/25/17 00:00 40 05/25/17 00:00 102 05/24/17 22:00 114 05/24/17 20:25 97 40 05/24/17 20:00 40 05/24/17 20:00 101.1 118 18 130/60 (83) 97 05/24/17 20:00 118 05/24/17 18:00 102 05/24/17 16:00 109 05/24/17 16:00 40 05/24/17 16:00 99.9 102 16 98/58 (71) 99 05/24/17 15:58 100 40 05/24/17 14:00 103 05/24/17 12:00 40 05/24/17 12:00 97 05/24/17 12:00 99.7 97 16 110/57 (74) 100 05/24/17 11:31 100 40 05/24/17 10:00 92 05/24/17 08:00 95 05/24/17 08:00 40 05/24/17 08:00 99.0 95 16 109/59 (76) 100 05/24/17 07:53 100 40 I/O 05/24/17 05/24/17 05/24/17 05/25/17 05/25/17 05/25/17 07:00 15:00 23:00 07:00 15:00 23:00 Intake Total 160 ml 452 ml 843 ml 1466 ml Output Total 325 ml 1075 ml 1200 ml Balance -165 ml 452 ml -232 ml 266 ml IV Total 452 ml 450 ml 1202 ml Tube Feeding 243 ml 144 ml Tube Irrigant 100 ml 150 ml 120 ml Other 60 ml Output Urine Total 325 ml 1075 ml 1200 ml # Bowel Movements 0 0 0 Result Diagram: 05/25/179 05/25/179 Imaging Last 24 hours Impressions Tibia/Fibula X-Ray 05/21/17 0000 Signed Impressions: Service Date/Time: Saturday, May 20, 2017 23:51 - CONCLUSION: Spot fluoroscopic images, as above. Del Wilson MD Femur X-Ray 05/21/17 0000 Signed Impressions: Service Date/Time: Saturday, May 20, 2017 23:51 - CONCLUSION: Spot fluoroscopic images, as above. Del Wilson MD Chest X-Ray 05/21/17 0000 Signed Impressions: Service Date/Time: Sunday, May 21, 2017 04:48 - CONCLUSION: No acute cardiopulmonary abnormality is identified. Del Wilson MD Maxillofacial CT 05/20/17 1501 Signed Impressions: Service Date/Time: Saturday, May 20, 2017 15:22 - CONCLUSION: Nasal bone fractures and nasal septal fracture suspected with septal deviation. Facial lacerations left perimandibular soft tissues. Possible sebaceous cyst on the right. Antwan Marcelino MD Head CT 05/20/17 1501 Signed Impressions: Service Date/Time: Saturday, May 20, 2017 15:22 - CONCLUSION: 1. No acute intracranial abnormality. 2. Please see the CT facial bones reported separately. Ricky River Jr., MD Chest CT 05/20/17 150 Signed Impressions: Service Date/Time: Saturday, May 20, 2017 15:30 - CONCLUSION: No acute disease. Antwan Marcelino MD Cervical Spine CT 05/20/17 150 Signed Impressions: Service Date/Time: Saturday, May 20, 2017 15:22 - CONCLUSION: Normal examination. Antwan Marcelino MD Abdomen/Pelvis CT 05/20/17 1501 Signed Impressions: Service Date/Time: Saturday, May 20, 2017 15:30 - CONCLUSION: Normal examination. Antwan Marcelino MD Procedures Compartment pressures checked twice today: 1st check: -Anterior compartment : 36,38,42 mmHg -Lateral Comparment: 32,34,34 mmHg 2nd Check: -Anterior Compartment: 30, 31, 30 mmHg -Lateral Compartment: 28, 29, 30 mmHg MAP - 86 BP 116/71 Objective Remarks RLE: +long leg splint. +exfix. bloody drainage from pin sites. 2+ swelling of lower leg. swelling improving Assessment & Plan Assessment and Plan 1) Right Femur Fracture 2) Right Tibial Shaft Fx 3) Right Medial Malleolus Fx s/p I&D and Exfix right leg by Dr. Segovia - POD 5 -NWB -Pin care BID -plan for surgery today with Dr Lange -planned extubation after surgery Anthony Gama/Cartographic Engineer JAKE May 25, 2017 07:36
[2017-05-25] MEDS: CHLORHEXIDINE 0.12% (ORAL KIT) 15 ML CUP MT SCH ×2 (08:00→20:06)
[2017-05-25] MEDS: SODIUM CHLORIDE 0.9% FLUSH 10 ML FLUSH IV FLUSH SCH ×2 (08:23→20:06)
[2017-05-25] MEDS: GENTAMICIN INJ 80 MG in SODIUM CHLORIDE 0.9% INJ 100 ML IV SCH ×2 (08:23→10:37)
[2017-05-25] MEDS: LACTULOSE SYRUP 20 GM/30 ML CUP PO SCH (08:23)
[2017-05-25] MEDS: MAGNESIUM HYDROXIDE SUSP 30 ML CUP PO SCH ×2 (08:24→20:05)
[2017-05-25] MEDS: DOCUSATE SODIUM 50 MG/SENNA 8.6 MG TAB PO SCH ×2 (08:24→20:05)
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
[2017-05-25] MEDS ORDERED: KETAMINE HCL 10 MG/5 ML SYRINGE IV PUSH ONE (09:22)
[2017-05-25] MEDS ORDERED: ceFAZolin 2 GM PREMIX 50 ML ONE (09:39)
[2017-05-25] MEDS ORDERED: VANCOMYCIN HCL 1000 MG VIAL ONE (09:40)
[2017-05-25] MEDS ORDERED: ACETAMINOPHEN 1000 MG/100 ML 100 ML IV ONE (10:49)
[2017-05-25] MEDS ORDERED: SODIUM CHLORID 0.9% 500 ML INJ 500 ML IV ONE (12:00)
[2017-05-25] MEDS ORDERED: ROCURONIUM INJ 50 MG/5 ML SYRINGE IV PUSH ONE (12:00)
--- NOTE | 2017-05-25 12:01 | PD.OP ---
cc: Nolan Lange MD Operative Report Date of Surgery: May 25, 2017 Preoperative Diagnosis: Displaced right femoral shaft fracture, open right tibia shaft fracture, right ankle medial malleolus fracture Postoperative Diagnosis: Procedure: Removal of external fixation, intramedullary nail fixation of right femur, irrigation debridement of right tibia, removal of deep hardware right tibia, intramedullary nail fixation right tibia, application wound VAC dressing Anesthesia: Gen. Surgeon: Nolan Lange Multimedia Authoring Specialist(s): FARZAD Franklin PA-C The surgical procedure was assisted by my physician social science research assistant. My P.A. presence was necessary throughout this case for the manipulation and positioning of the surgical extremity. My P.A. was assisting me throughout the duration of this procedure. The skill set of a physician social science research assistant was medically necessary to complete this procedure. During the surgical case the surgical endoscopist was working at the back table and the physician social science research assistant was directly assisting me. Operation and Findings: Implants used: Synthes retrograde femoral nail, ITS tibial nail Plan of activity: Nonweightbearing right leg Patient was seen and evaluated preoperatively. The patient has significant leg pain from right femur shaft fracture, tibial shaft fracture, and right ankle fracture. He was initially treated with irrigation debridement and external fixation of fractures.. The risk and benefits of surgery were discussed in depth with the patients mother including bleeding, infection, nonunion, malunion , need for hip replacement, painful hardware, as well as medical competitions including blood clots, stroke, heart attack, and . Informed consent was obtained. Operative site was marked. Patient was brought to the operating room and placed on Priyank table. IV sedation was administered by anesthesiologist. Timeout procedure was performed. IV antibiotics were given prior to incision. Procedure began with removal of external fixation. Clamps were loosened. Clamps and bars were removed from the pins. The pins were now removed from the tibia and femur.Hip and leg were prepped with alcohol followed by Hibiclens and draped in the usual sterile fashion. Procedure began with reduction of fracture. Traction was applied. The leg was manipulated to achieve reduction. Excellent reduction was achieved. Fluoroscopy was used to confirm reduction. A two inch incision was made over the anterior knee. A medial arthrotomy was created. Guidepin was placed into the distal femur and advanced into the femoral canal. Fluoroscopy confirmed appropriate guidepin placement. A opening reamer was placed over the guidepin. A long ball tipped guide pin was now placed down the femoral canal into the center of the proximal femur. The nail length was now measured. Fluoroscopy confirmed appropriate guidepin placement. Flexible reamers were now passed over the guidepin to ream the intramedullary canal. The Synthes nail was attached to the insertion handle. Nail was now placed over the guidepin into the femoral canal. Fluoroscopy confirmed appropriate nail placement. A small percutaneous incisions were made over the lateral thigh. Cannulas were placed through the insertion handle down to the femur. Using the insertion handle as a guide the distal interlocking screw holes were predrilled and screw lengths were measured. Appropriate length screws was now placed. Next, using perfect [place] technique two proximal interlocking screws were placed. Screw holes were predrilled and screw lengths were measured. Final fluoroscopy revealed well aligned fracture with well-placed hardware. Incision was closed with 0 Vicryl, 3-0 Vicryl and tray. Next attention was turned to the right tibia. The traumatic laceration was opened. There was a plate over the anterior tibia. Hardware was now removed. Screws were removed. Screws and plate were removed. Next attention was turned towards irrigation and debridement of the tibia fracture. Skin subcutaneous tissue and fascia were sharply debrided. Curettes and rongeurs were used to debride fascia and bone. Soft tissue and bone were now thoroughly irrigated with 3 L of sterile saline. Overall the wound appeared clean at this time. Next attention was turned towards the tibia fracture. Traction was applied. Fracture was reduced. There was comminution of the fracture. The fracture reduced and excellent alignment was achieved. Fracture clamp was used to aid in reduction. Next a 3 cm incision was made proximal to the patella. Quadriceps tendon was split in line with fibers. Cannulas were placed in the patellofemoral joint to protect the articular surface at all times. A guidepin was placed into the tibia and advanced in the tibial canal. Fluoroscopy was used to confirm appropriate guidepin placement. An opening reamer was used to open the tibial canal. A ball-tipped guidewire was advanced down the tibial canal. Guidepin was passed across the fracture site into the center of the distal tibia. Fluoroscopy confirmed guidepin placement. The nail length was now measured. The fracture was now held in a reduced position and the canal was reamed. The canal was reamed up to appropriate size. A ITS 10 mm x 360 mm tibia nail was now selected. Next the nail was fully seated. Using perfect [place] technique 2 distal interlocking screws were placed. Using the insertion handle as a guide 2 proximal interlocking screws were placed. Fluoroscopy confirmed excellent of fracture with well-placed hardware. Incisions and the knee joint were thoroughly irrigated with sterile saline. The traumatic laceration was closed with 3-0 PDS and 3-0 nylon. Fascia was closed with #1 Vicryl, subcutaneous tissues closed with 3-0 Vicryl and skin was closed with tray. Next attention was turned towards the medial malleolus fracture of the distal tibia. The skin in this region had significant bruising as well as some skin blistering. The fracture was visualized under fluoroscopy. The fracture had moderate displacement. At this point the skin condition did not appear to be appropriate for surgical incisions. Additional surgery will be necessary at later date for internal fixation of the medial malleolus fracture. Sterile dressings were applied. An incisional wound VAC was now placed in sealed over the chronic laceration. Patient was transferred to intensive care in stable condition. Nolan Lange MD May 25, 2017 12:01
--- NOTE | 2017-05-25 13:11 | PD.ORT.PN ---
Subjective Subjective Remarks POD 0 s/p removal of exfix with IMN of right femur and tibia POD 0 application of incisional wound vac right leg s/p right medial malleolus fracture intubated/sedated. Objective Vitals Vital Signs Date Time Temp Pulse Resp B/P (MAP) Pulse Ox O2 Delivery O2 Flow Rate FiO2 05/25/17 13:02 98.8 97 16 121/60 92 05/25/17 12:49 93 40 05/25/17 09:53 100 100 05/25/17 08:28 96 40 05/25/17 08:00 101 05/25/17 08:00 100.4 101 16 101/56 (71) 98 05/25/17 08:00 40 05/25/17 06:00 101 05/25/17 04:03 95 40 05/25/17 04:00 100.8 99 16 102/56 (71) 93 05/25/17 04:00 99 05/25/17 04:00 40 05/25/17 02:00 107 05/25/17 00:15 100 40 05/25/17 00:00 101.1 102 16 100/53 (69) 99 05/25/17 00:00 40 05/25/17 00:00 102 05/24/17 22:00 114 05/24/17 20:25 97 40 05/24/17 20:00 40 05/24/17 20:00 101.1 118 18 130/60 (83) 97 05/24/17 20:00 118 05/24/17 18:00 102 05/24/17 16:00 109 05/24/17 16:00 40 05/24/17 16:00 99.9 102 16 98/58 (71) 99 05/24/17 15:58 100 40 05/24/17 14:00 103 I/O 05/24/17 05/24/17 05/24/17 05/25/17 05/25/17 05/25/17 07:00 15:00 23:00 07:00 15:00 23:00 Intake Total 160 ml 452 ml 843 ml 1466 ml 50 ml Output Total 325 ml 1075 ml 1200 ml Balance -165 ml 452 ml -232 ml 266 ml 50 ml IV Total 452 ml 450 ml 1202 ml Tube Feeding 243 ml 144 ml Blood Product IV Normal Saline Flush 50 ml Tube Irrigant 100 ml 150 ml 120 ml Other 60 ml Output Urine Total 325 ml 1075 ml 1200 ml # Bowel Movements 0 0 0 Result Diagram: 05/25/179 05/25/17328 Imaging Last 24 hours Impressions Tibia/Fibula X-Ray 05/21/17 0000 Signed Impressions: Service Date/Time: Saturday, May 20, 2017 23:51 - CONCLUSION: Spot fluoroscopic images, as above. Del Wilson MD Femur X-Ray 05/21/17 0000 Signed Impressions: Service Date/Time: Saturday, May 20, 2017 23:51 - CONCLUSION: Spot fluoroscopic images, as above. Del Wilson MD Chest X-Ray 05/21/17 0000 Signed Impressions: Service Date/Time: Sunday, May 21, 2017 04:48 - CONCLUSION: No acute cardiopulmonary abnormality is identified. Del Wilson MD Maxillofacial CT 05/20/17 150 Signed Impressions: Service Date/Time: Saturday, May 20, 2017 15:22 - CONCLUSION: Nasal bone fractures and nasal septal fracture suspected with septal deviation. Facial lacerations left perimandibular soft tissues. Possible sebaceous cyst on the right. Antwan Marcelino MD Head CT 05/20/17 1501 Signed Impressions: Service Date/Time: Saturday, May 20, 2017 15:22 - CONCLUSION: 1. No acute intracranial abnormality. 2. Please see the CT facial bones reported separately. Ricky River Jr., MD Chest CT 05/20/17 150 Signed Impressions: Service Date/Time: Saturday, May 20, 2017 15:30 - CONCLUSION: No acute disease. Antwan Marcelino MD Cervical Spine CT 05/20/17 1501 Signed Impressions: Service Date/Time: Saturday, May 20, 2017 15:22 - CONCLUSION: Normal examination. Antwan Marcelino MD Abdomen/Pelvis CT 05/20/17 1501 Signed Impressions: Service Date/Time: Saturday, May 20, 2017 15:30 - CONCLUSION: Normal examination. Antwan Marcelino MD Procedures Compartment pressures checked twice today: 1st check: -Anterior compartment : 36,38,42 mmHg -Lateral Comparment: 32,34,34 mmHg 2nd Check: -Anterior Compartment: 30, 31, 30 mmHg -Lateral Compartment: 28, 29, 30 mmHg MAP - 86 BP 116/71 Objective Remarks RLE: +short leg splint. intact. bandages clean and dry. +wound vac with good seal. Assessment & Plan Assessment and Plan 1) Right Femur Fracture s/p IMN - POD 0 2) Right Tibial Shaft Fx s/p IMN - POD 0 3) Right Medial Malleolus Fx -NWB -maintain splint and vac at all times -too swollen to fix medial malleolus at this time. will plan on re-evaluating swelling for fixation next week. -elevate at all times -vac settings: 100mmHg, low, 3:1 -will plan on leaving vac in place for at least 5 days Anthony Gama/First Mari JOSEPH May 25, 2017 13:11
[2017-05-25] MEDS: MIDAZOLAM 100 MG/NS 100 ML DRIP Premix IV PRN (13:42)
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
[2017-05-25] MEDS: ceFAZolin 2 GM PREMIX 50 ML IV SCH ×2 (15:05→21:27)
[2017-05-25] MEDS: PANTOPRAZOLE SODIUM 40 MG VIAL IVP SCH (15:05)
--- NOTE | 2017-05-25 15:32 | RADRPT ---
EXAM DATE/TIME: 05/25/2017 10:53 [facility] COMPARISON: FEMUR RIGHT (AP & LAT/2VWS), May 20, 2017, 23:51. INDICATIONS : Right femur IM nicole. MEDICAL HISTORY : None. SURGICAL HISTORY : None. ENCOUNTER: Subsequent ACUITY: 1 day PAIN SCORE: Non-responsive. LOCATION: Right femur FINDINGS: Two view intraoperative examination of the right femur demonstrates interval placement of a medullary nicole to secure the comminuted diaphyseal fracture. The main fracture fragments are in anatomic alignm ent. CONCLUSION: Open reduction and internal fixation of the comminuted femoral diaphyseal fracture as above. Royal Parekh MD on May 25, 2017 at 15:28 Board Certified Radiologist. This report was verified electronically.
--- NOTE | 2017-05-25 15:35 | RADRPT ---
EXAM DATE/TIME: 05/25/2017 10:53 [facility] COMPARISON: TIBIA/FIBULA RIGHT (AP/LAT), May 20, 2017, 23:51. INDICATIONS : Right tibia IM nicole. MEDICAL HISTORY : None. SURGICAL HISTORY : None. ENCOUNTER: Subsequent ACUITY: 1 day PAIN SCORE: Non-responsive. LOCATION: Right tibia FINDINGS: Two view intraoperative examination of the right tibia demonstrates interval removal of the previousl y seen side plate and osseous screws and external fixator securing the tibial diaphyseal fracture. In terval placement of a medullary nicole. The main fracture fragments are in adequate anatomic alignment. There appears to be a slightly displaced medial malleolar fracture at the ankle CONCLUSION: 1. Interval placement of intramedullary nicole for comminuted tibial diaphyseal fracture. 2. External fixator, sideplate and osseous screws have been removed. 3. Slightly displaced medial malleolar fracture. Royal Parekh MD on May 25, 2017 at 15:30 Board Certified Radiologist. This report was verified electronically.
[2017-05-25 17:52] LABS: HEMATOCRIT 27.8 % (39.0-51.0); HEMOGLOBIN 9.6 GM/DL (13.0-17.0)
[2017-05-25] MEDS: GENTAMICIN 80 MG PREMIX 100 ML IV SCH (18:07)
[2017-05-25] MEDS: ENOXAPARIN SODIUM 30 MG/0.3 ML SYRINGE SQ SCH (23:43)
[2017-05-26] VITALS (16 sets, daily range): BP systolic 94–133; BP diastolic 54–74; PULSE 96–132; RESP 18–28; TEMP 99.9–102.2; O2SAT 91–100
[2017-05-26] MEDS: CHLORHEXIDINE GLUCONATE 2 % 1 PACK (2 CLOTHS) TOP SCH (03:22)
[2017-05-26] MEDS: PROPOFOL 1000 MG/100 ML IV PRN (03:22)
[2017-05-26] MEDS: ACETAMINOPHEN 650 MG/20.3 ML UDC PO PRN (03:22)
[2017-05-26] MEDS: GENTAMICIN 80 MG PREMIX 100 ML IV SCH (03:50)
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
[2017-05-26 04:14] LABS: AUTOMATED NEUTROPHIL # 10.1 TH/MM3 (1.8-7.7); BASOPHIL # 0.1 TH/MM3 (0-0.2); BASOPHIL % 0.5 % (0.0-2.0); EOSINOPHIL # 0.2 TH/MM3 (0-0.4); EOSINOPHIL % 1.5 % (0.0-4.0); HEMATOCRIT 29.8 % (39.0-51.0); HEMOGLOBIN 10.1 GM/DL (13.0-17.0); LYMPH % 12.3 % (9.0-44.0); LYMPHOCYTE # 1.6 TH/MM3 (1.0-4.8); MEAN CELL VOLUME 82.9 FL (80.0-100.0); MEAN CORPUSCULAR HGB CONC 33.7 % (32.0-36.0); MEAN PLATELET VOLUME 8.8 FL (7.0-11.0); MONO % 10.4 % (0.0-8.0); MONOCYTE # 1.4 TH/MM3 (0-0.9); NEUT % 75.3 % (16.0-70.0); PLATELET COUNT 300 TH/MM3 (150-450); RED BLOOD COUNT 3.59 MIL/MM3 (4.50-5.90); RED CELL DISTRIBUTION WIDTH 14.5 % (11.6-17.2); WHITE BLOOD COUNT 13.4 TH/MM3 (4.0-11.0)
[2017-05-26 04:28] LABS: ALBUMIN 1.8 GM/DL (3.4-5.0); ALT (GPT) 70 U/L (12-78); AST (GOT) 141 U/L (15-37); BICARBONATE 29.9 MEQ/L (21.0-32.0); BLOOD UREA NITROGEN 9 MG/DL (7-18); CALCIUM 8.6 MG/DL (8.5-10.1); CHLORIDE 102 MEQ/L (98-107); GLOMERULAR FILTRATION RATE 120 ML/MIN (>89); GLUCOSE,RANDOM 94 MG/DL (74-106); SODIUM (NA) 138 MEQ/L (136-145)
[2017-05-26 04:42] LABS: ALKALINE PHOSPHATASE 227 U/L (45-117); TOTAL BILIRUBIN ADULT 0.6 MG/DL (0.2-1.0); TOTAL PROTEIN 6.1 GM/DL (6.4-8.2)
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
[2017-05-26] MEDS: ceFAZolin 2 GM PREMIX 50 ML IV SCH ×3 (05:33→22:03)
[2017-05-26] MEDS: fentaNYL 2,500 MCG/NS 250 ML IV PRN (05:33)
--- NOTE | 2017-05-26 07:18 | PD.ORT.PN ---
Subjective Subjective Remarks POD 1 s/p removal of exfix with IMN of right femur and tibia POD 1 application of incisional wound vac right leg s/p right medial malleolus fracture intubated/sedated. Objective Vitals Vital Signs Date Time Temp Pulse Resp B/P (MAP) Pulse Ox O2 Delivery O2 Flow Rate FiO2 05/26/17 06:00 113 05/26/17 05:15 65 05/26/17 04:45 55 05/26/17 04:00 126 05/26/17 04:00 101.8 126 21 133/64 (87) 91 05/26/17 04:00 40 05/26/17 02:00 101 05/26/17 00:00 99.9 97 18 118/64 (82) 100 05/26/17 00:00 97 05/26/17 00:00 40 05/25/17 23:54 100 40 05/25/17 22:00 99 05/25/17 21:55 95 40 05/25/17 20:00 40 05/25/17 20:00 112 05/25/17 20:00 100.8 112 20 126/59 (81) 95 05/25/17 18:00 115 05/25/17 16:57 96 40 05/25/17 16:45 40 05/25/17 16:00 99.3 110 30 128/68 (88) 95 05/25/17 16:00 110 05/25/17 15:30 40 05/25/17 15:30 40 05/25/17 14:00 104 05/25/17 13:02 98.8 97 16 121/60 92 05/25/17 12:49 93 40 05/25/17 09:53 100 100 05/25/17 08:28 96 40 05/25/17 08:00 101 05/25/17 08:00 100.4 101 16 101/56 (71) 98 05/25/17 08:00 40 I/O 05/25/17 05/25/17 05/25/17 05/26/17 05/26/17 05/26/17 07:00 15:00 23:00 07:00 15:00 23:00 Intake Total 1466 ml 50 ml 1400 ml 680 ml Output Total 1200 ml 1250 ml 1825 ml Balance 266 ml 50 ml 150 ml -1145 ml IV Total 1202 ml 1000 ml 250 ml Tube Feeding 144 ml 310 ml Packed Cells 400 ml Blood Product IV Normal Saline Flush 50 ml Tube Irrigant 120 ml 120 ml Output Urine Total 1200 ml 1250 ml 1800 ml Drainage Total 0 ml 25 ml # Bowel Movements 0 0 0 Result Diagram: 05/26/179 05/26/179 Imaging Last 24 hours Impressions Tibia/Fibula X-Ray 05/21/17 0000 Signed Impressions: Service Date/Time: Saturday, May 20, 2017 23:51 - CONCLUSION: Spot fluoroscopic images, as above. Del Wilson MD Femur X-Ray 05/21/17 0000 Signed Impressions: Service Date/Time: Saturday, May 20, 2017 23:51 - CONCLUSION: Spot fluoroscopic images, as above. Del Wilson MD Chest X-Ray 05/21/17 0000 Signed Impressions: Service Date/Time: Sunday, May 21, 2017 04:48 - CONCLUSION: No acute cardiopulmonary abnormality is identified. Del Wilson MD Maxillofacial CT 05/20/17 150 Signed Impressions: Service Date/Time: Saturday, May 20, 2017 15:22 - CONCLUSION: Nasal bone fractures and nasal septal fracture suspected with septal deviation. Facial lacerations left perimandibular soft tissues. Possible sebaceous cyst on the right. Antwan Marcelino MD Head CT 05/20/17 1501 Signed Impressions: Service Date/Time: Saturday, May 20, 2017 15:22 - CONCLUSION: 1. No acute intracranial abnormality. 2. Please see the CT facial bones reported separately. Ricky River Jr., MD Chest CT 05/20/17 150 Signed Impressions: Service Date/Time: Saturday, May 20, 2017 15:30 - CONCLUSION: No acute disease. Antwan Marcelino MD Cervical Spine CT 05/20/17 150 Signed Impressions: Service Date/Time: Saturday, May 20, 2017 15:22 - CONCLUSION: Normal examination. Antwan Marcelino MD Abdomen/Pelvis CT 05/20/17 1501 Signed Impressions: Service Date/Time: Saturday, May 20, 2017 15:30 - CONCLUSION: Normal examination. Antwan Marcelino MD Procedures Compartment pressures checked twice today: 1st check: -Anterior compartment : 36,38,42 mmHg -Lateral Comparment: 32,34,34 mmHg 2nd Check: -Anterior Compartment: 30, 31, 30 mmHg -Lateral Compartment: 28, 29, 30 mmHg MAP - 86 BP 116/71 Objective Remarks RLE: +short leg splint. intact. bandages clean and dry. +wound vac with good seal. Assessment & Plan Assessment and Plan 1) Right Femur Fracture s/p IMN - POD 1 2) Right Tibial Shaft Fx s/p IMN - POD 1 3) Right Medial Malleolus Fx -NWB -maintain splint and vac at all times -too swollen to fix medial malleolus at this time. will plan on re-evaluating swelling for fixation next week. -elevate at all times -vac settings: 100mmHg, low, 3:1 -will plan on leaving vac in place for at least 5 days Anthony Gama/First Mari JOSEPH May 26, 2017 07:18
[2017-05-26] MEDS ORDERED: BISACODYL 10 MG SUPP RECTAL ONE (07:30)
[2017-05-26] MEDS ORDERED: METHYLNALTREXONE BROMIDE 12 MG/0.6 ML VIAL SQ ONE (07:45)
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
[2017-05-26] MEDS: RESP: ALBUTEROL 2.5 MG/3 ML NEB (PRN) NEB (10:40)
[2017-05-26] MEDS: DEXMEDETOMIDINE INJ 200 MCG in SODIUM CHLORIDE 0.9% INJ 50 ML IV PRN ×8 (10:43→23:58)
[2017-05-26] MEDS ORDERED: RESP: RACEPINEPHRINE 2.25% 0.5 ML NEB NEB PRN (10:45)
[2017-05-26] MEDS ORDERED: RESP: RACEPINEPHRINE 2.25% 0.5 ML NEB NEB ONE (10:45)
[2017-05-26] MEDS ORDERED: FUROSEMIDE 40 MG/4 ML VIAL IV PUSH ONE (10:45)
[2017-05-26] MEDS ORDERED: ACETAMINOPHEN 1000 MG/100 ML 100 ML IV PRN (10:45)
[2017-05-26] MEDS: GENTAMICIN INJ 80 MG in SODIUM CHLORIDE 0.9% INJ 100 ML IV SCH ×2 (11:35→21:10)
[2017-05-26] MEDS: LACTULOSE SYRUP 20 GM/30 ML CUP NG SCH ×2 (12:00→18:00)
[2017-05-26] MEDS ORDERED: RESP: ALBUTEROL 2.5 MG/IPRATROPIUM 0.5 MG NEB (SCH) NEB (12:00)
[2017-05-26] MEDS: ENOXAPARIN SODIUM 30 MG/0.3 ML SYRINGE SQ SCH (13:12)
[2017-05-26] MEDS: ARTIFICIAL TEARS OPTH SOLN 15 ML BTL EACH EYE SCH ×2 (14:00→21:11)
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
[2017-05-26] MEDS: RESP: ALBUTEROL 2.5 MG/IPRATROPIUM 0.5 MG NEB (SCH) NEB ×2 (15:52→20:28)
[2017-05-26] MEDS: VALPROATE INJ 250 MG in SODIUM CHLORIDE 0.9% INJ 100 ML IV SCH ×2 (16:00→21:11)
[2017-05-26] MEDS: PANTOPRAZOLE SODIUM 40 MG VIAL IVP SCH (16:45)
[2017-05-26] MEDS: POLYETHYLENE GLYCOL 17 GM PKG PO SCH (21:00)
[2017-05-26] MEDS: MAGNESIUM HYDROXIDE SUSP 30 ML CUP PO SCH (21:00)
[2017-05-26] MEDS: DOCUSATE SODIUM 50 MG/SENNA 8.6 MG TAB PO SCH (21:00)
[2017-05-26] MEDS: SODIUM CHLORIDE 0.9% FLUSH 10 ML FLUSH IV FLUSH SCH (21:00)
[2017-05-26] MEDS: ACETAMINOPHEN 1000 MG/100 ML 100 ML IV PRN (23:10)
[2017-05-26] MEDS: LACTATED RINGER'S 1000 ML INJ 1,000 ML IV SCH (23:45)
[2017-05-27] VITALS (15 sets, daily range): BP systolic 99–116; BP diastolic 21–64; PULSE 84–120; RESP 20–28; TEMP 100–101.6; O2SAT 91–96
[2017-05-27] MEDS: ENOXAPARIN SODIUM 30 MG/0.3 ML SYRINGE SQ SCH ×2 (01:00→13:00)
[2017-05-27] MEDS: DEXMEDETOMIDINE INJ 200 MCG in SODIUM CHLORIDE 0.9% INJ 50 ML IV PRN ×5 (01:41→10:26)
[2017-05-27] MEDS: LACTATED RINGER'S 1000 ML INJ 1,000 ML IV SCH ×2 (01:41→10:30)
[2017-05-27] MEDS: CHLORHEXIDINE GLUCONATE 2 % 1 PACK (2 CLOTHS) TOP SCH (04:00)
[2017-05-27] MEDS: RESP: ALBUTEROL 2.5 MG/IPRATROPIUM 0.5 MG NEB (SCH) NEB ×4 (04:10→21:42)
[2017-05-27 04:20] LABS: AUTOMATED NEUTROPHIL # 9.6 TH/MM3 (1.8-7.7); BASOPHIL % 0.3 % (0.0-2.0); EOSINOPHIL % 0.3 % (0.0-4.0); HEMATOCRIT 25.3 % (39.0-51.0); HEMOGLOBIN 8.4 GM/DL (13.0-17.0); LYMPH % 12.1 % (9.0-44.0); LYMPHOCYTE # 1.5 TH/MM3 (1.0-4.8); MEAN CELL VOLUME 82.8 FL (80.0-100.0); MEAN CORPUSCULAR HEMOGLOBIN 27.4 PG (27.0-34.0); MEAN CORPUSCULAR HGB CONC 33.1 % (32.0-36.0); MEAN PLATELET VOLUME 7.5 FL (7.0-11.0); MONO % 11.3 % (0.0-8.0); MONOCYTE # 1.4 TH/MM3 (0-0.9); PLATELET COUNT 409 TH/MM3 (150-450); RED BLOOD COUNT 3.06 MIL/MM3 (4.50-5.90); RED CELL DISTRIBUTION WIDTH 14.6 % (11.6-17.2); WHITE BLOOD COUNT 12.6 TH/MM3 (4.0-11.0)
[2017-05-27 04:34] LABS: ALBUMIN 1.9 GM/DL (3.4-5.0); ALT (GPT) 47 U/L (12-78); AST (GOT) 90 U/L (15-37); BICARBONATE 28.1 MEQ/L (21.0-32.0); BLOOD UREA NITROGEN 14 MG/DL (7-18); CALCIUM 8.7 MG/DL (8.5-10.1); CHLORIDE 104 MEQ/L (98-107); CREATININE 0.86 MG/DL (0.60-1.30); GLOMERULAR FILTRATION RATE 110 ML/MIN (>89); GLUCOSE,RANDOM 101 MG/DL (74-106); MAGNESIUM 2.4 MG/DL (1.5-2.5); PHOSPHORUS 3.1 MG/DL (2.5-4.9); SODIUM (NA) 141 MEQ/L (136-145)
[2017-05-27] MEDS: GENTAMICIN INJ 80 MG in SODIUM CHLORIDE 0.9% INJ 100 ML IV SCH ×2 (04:43→11:25)
[2017-05-27 04:48] LABS: ALKALINE PHOSPHATASE 196 U/L (45-117); TOTAL BILIRUBIN ADULT 0.5 MG/DL (0.2-1.0)
[2017-05-27] MEDS: ARTIFICIAL TEARS OPTH SOLN 15 ML BTL EACH EYE SCH ×3 (05:50→21:39)
[2017-05-27] MEDS: LACTULOSE SYRUP 20 GM/30 ML CUP NG SCH ×5 (05:50→23:23)
[2017-05-27] MEDS: VALPROATE INJ 250 MG in SODIUM CHLORIDE 0.9% INJ 100 ML IV SCH ×3 (06:24→22:00)
[2017-05-27] MEDS: ceFAZolin 2 GM PREMIX 50 ML IV SCH (06:25)
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
[2017-05-27] MEDS ORDERED: VANCOMYCIN INJ 1,250 MG in SODIUM CHLOR 0.9% 250 ML INJ 250 ML IV ONE (09:00)
[2017-05-27] MEDS: SODIUM CHLORIDE 0.9% FLUSH 10 ML FLUSH IV FLUSH SCH ×2 (09:00→20:19)
[2017-05-27] MEDS: POLYETHYLENE GLYCOL 17 GM PKG PO SCH ×2 (09:00→20:18)
[2017-05-27] MEDS: MAGNESIUM HYDROXIDE SUSP 30 ML CUP PO SCH ×2 (09:00→20:18)
--- NOTE | 2017-05-27 09:21 | PD.ORT.PN ---
Subjective Subjective Remarks Mildly sedated. No longer on ventilation. Receiving a breathing treatment while in the room. He is accompanied by his father. Notes pain in his right leg. No new complaints per his father / family member. Objective Vitals Vital Signs Date Time Temp Pulse Resp B/P (MAP) Pulse Ox O2 Delivery O2 Flow Rate FiO2 05/27/17 09:09 95 21 05/27/17 08:00 100.1 92 20 116/64 (81) 96 05/27/17 08:00 92 05/27/17 06:00 94 05/27/17 04:00 100.0 84 22 99/56 (70) 91 05/27/17 04:00 84 05/27/17 02:00 87 05/27/17 00:30 95 Nasal Cannula 6.00 05/27/17 00:00 101.6 104 22 113/54 (73) 96 05/27/17 00:00 104 05/26/17 22:00 106 05/26/17 20:40 99 Simple Mask 9.00 05/26/17 20:29 97 Partial Rebreather 11.00 05/26/17 20:00 101.5 108 18 122/66 (84) 97 05/26/17 20:00 108 05/26/17 18:00 99 05/26/17 16:00 96 05/26/17 16:00 100.4 96 26 94/54 (67) 97 05/26/17 14:00 108 05/26/17 12:00 102.2 124 28 122/74 (90) 100 05/26/17 12:00 124 05/26/17 10:35 92 Simple Mask 15.00 05/26/17 10:35 92 Mask 15 05/26/17 10:00 132 I/O 05/26/17 05/26/17 05/26/17 05/27/17 05/27/17 05/27/17 07:00 15:00 23:00 07:00 15:00 23:00 Intake Total 680 ml 492 ml 450 ml 152 ml Output Total 1825 ml 5525 ml 1460 ml Balance -1145 ml -5033 ml -1010 ml 152 ml IV Total 250 ml 492 ml 450 ml 152 ml Tube Feeding 310 ml Tube Irrigant 120 ml Output Urine Total 1800 ml 5500 ml 1450 ml Drainage Total 25 ml 25 ml 10 ml # Bowel Movements 0 0 0 Result Diagram: 05/27/17 0351 05/27/17 0351 Imaging Last 24 hours Impressions Tibia/Fibula X-Ray 05/21/17 0000 Signed Impressions: Service Date/Time: Saturday, May 20, 2017 23:51 - CONCLUSION: Spot fluoroscopic images, as above. Del Wilson MD Femur X-Ray 05/21/17 0000 Signed Impressions: Service Date/Time: Saturday, May 20, 2017 23:51 - CONCLUSION: Spot fluoroscopic images, as above. Del Wilson MD Chest X-Ray 05/21/17 0000 Signed Impressions: Service Date/Time: Sunday, May 21, 2017 04:48 - CONCLUSION: No acute cardiopulmonary abnormality is identified. Del Wilson MD Maxillofacial CT 05/20/17 150 Signed Impressions: Service Date/Time: Saturday, May 20, 2017 15:22 - CONCLUSION: Nasal bone fractures and nasal septal fracture suspected with septal deviation. Facial lacerations left perimandibular soft tissues. Possible sebaceous cyst on the right. Antwan Marcelino MD Head CT 05/20/17 150 Signed Impressions: Service Date/Time: Saturday, May 20, 2017 15:22 - CONCLUSION: 1. No acute intracranial abnormality. 2. Please see the CT facial bones reported separately. Ricky River Jr., MD Chest CT 05/20/17 150 Signed Impressions: Service Date/Time: Saturday, May 20, 2017 15:30 - CONCLUSION: No acute disease. Antwan Marcelino MD Cervical Spine CT 05/20/17 150 Signed Impressions: Service Date/Time: Saturday, May 20, 2017 15:22 - CONCLUSION: Normal examination. Antwan Marcelino MD Abdomen/Pelvis CT 05/20/17 150 Signed Impressions: Service Date/Time: Saturday, May 20, 2017 15:30 - CONCLUSION: Normal examination. Antwan Marcelino MD Procedures Compartment pressures checked twice today: 1st check: -Anterior compartment : 36,38,42 mmHg -Lateral Comparment: 32,34,34 mmHg 2nd Check: -Anterior Compartment: 30, 31, 30 mmHg -Lateral Compartment: 28, 29, 30 mmHg MAP - 86 BP 116/71 Objective Remarks Sitting up in bed Receiving a breathing treatment NAD, mildly sedated RLE Large DANTE, short leg splint intact, bandages clean and dry. +wound vac with good seal. Wiggles great toes, slightly diminished sensation, some swelling of toes, Cap refill less than 2 secs Assessment & Plan Ortho Post Op Day #: 2 Problem List: Assessment and Plan 1) Right Femur Fracture s/p IMN - POD 2 2) Right Tibial Shaft Fx s/p IMN - POD 2 3) Right Medial Malleolus Fx - Pt mildly sedated but lucid. Answers questions intermittently. Is accompanied by his father. -NWB RLE. -maintain splint and vac at all times -Will need definitive treatment of his right medial malleolus fx once swelling has decreased and tissues have healed. Ese's team to re-eval sun/. -elevate at all times -vac settings: 100mmHg, low, 3:1 -will plan on leaving vac in place for at least 5 days Yandy Pimentel May 27, 2017 09:21
--- NOTE | 2017-05-27 10:23 | HHI.PR ---
Subjective Remarks pt seen and examined this morning parents/nurse at bedside extubated yesterday aao, nad talking s/p assisted - nasal bone fracture/nasal and left facial soft tissue injury/ laceration nasal splint came off yesterday night - noted at bedside POD 5 s/p repair of nasal degloving injury- involving the nasal septum, closure of nasal/left face laceration Objective Vital Signs Date Time Temp Pulse Resp B/P (MAP) Pulse Ox O2 Delivery O2 Flow Rate FiO2 05/27/17 09:09 95 21 05/27/17 08:00 100.1 92 20 116/64 (81) 96 05/27/17 08:00 92 05/27/17 06:00 94 05/27/17 04:00 100.0 84 22 99/56 (70) 91 05/27/17 04:00 84 05/27/17 02:00 87 05/27/17 00:30 95 Nasal Cannula 6.00 05/27/17 00:00 101.6 104 22 113/54 (73) 96 05/27/17 00:00 104 05/26/17 22:00 106 05/26/17 20:40 99 Simple Mask 9.00 05/26/17 20:29 97 Partial Rebreather 11.00 05/26/17 20:00 101.5 108 18 122/66 (84) 97 05/26/17 20:00 108 05/26/17 18:00 99 05/26/17 16:00 96 05/26/17 16:00 100.4 96 26 94/54 (67) 97 05/26/17 14:00 108 05/26/17 12:00 102.2 124 28 122/74 (90) 100 05/26/17 12:00 124 05/26/17 10:35 92 Simple Mask 15.00 05/26/17 10:35 92 Mask 15 I/O 05/26/17 05/26/17 05/26/17 05/27/17 05/27/17 05/27/17 07:00 15:00 23:00 07:00 15:00 23:00 Intake Total 680 ml 492 ml 450 ml 152 ml Output Total 1825 ml 5525 ml 1460 ml Balance -1145 ml -5033 ml -1010 ml 152 ml IV Total 250 ml 492 ml 450 ml 152 ml Tube Feeding 310 ml Tube Irrigant 120 ml Output Urine Total 1800 ml 5500 ml 1450 ml Drainage Total 25 ml 25 ml 10 ml # Bowel Movements 0 0 0 Result Diagram: 05/27/1735005/27/17350 Objective Remarks nose/left facial soft tissue injury - wound sites hemostatic wounds pink/well perfused, no signs of infection bleeding pus edema nasal bone stable, good projection/stabilization - splint not present all wound margins well approximated, sutures intact good facial/nasal projection Assessment and Plan Assessment and Plan s/p assisted - nasal bone fracture/nasal and left facial soft tissue injury/ laceration - POD 5 s/p repair of nasal degloving injury- involving the nasal septum, closure of nasal/left face laceration stable from oms standpoint placed new nasal segundo splint today - can remove in 3 days continue supportive care oms signing off, recall as required f/up when discharged Johann Villarreal DMD May 27, 2017 10:23
[2017-05-27] MEDS: DOCUSATE SODIUM 50 MG/SENNA 8.6 MG TAB PO SCH ×2 (10:25→20:18)
[2017-05-27] MEDS: cloNIDine HCL 0.2 MG TAB PO SCH ×3 (10:25→22:00)
[2017-05-27] MEDS ORDERED: MORPHINE SULFATE 4 MG/ML INJ IV PUSH PRN (10:30)
[2017-05-27] MEDS ORDERED: oxyCODONE/ACETAMINOPHEN 5 MG/325 MG TAB PO PRN (10:30)
[2017-05-27] MEDS: ACETAMINOPHEN 1000 MG/100 ML 100 ML IV PRN (11:27)
[2017-05-27] MEDS: FLUoxetine HCL 20 MG CAP PO SCH (12:00)
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
[2017-05-27] MEDS: QUEtiapine FUMARATE 25 MG TAB PO SCH ×2 (14:17→21:39)
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
[2017-05-27 15:49] LABS: BILIRUBIN, URINE NEG (NEG); BLOOD, URINE TRACE (NEG); GLUCOSE,URINE NEG (NEG); KETONE, URINE NEG (NEG); NITRITE,URINE NEG (NEG); URINE COLOR LIGHT-YELLOW (YELLW/STRAW); URINE LEUKOCYTE ESTERASE NEG (NEG)
[2017-05-27] MEDS: PANTOPRAZOLE SODIUM 40 MG VIAL IVP SCH (16:32)
[2017-05-27] MEDS: cefTRIAXone INJ 2,000 MG in SODIUM CHLORIDE 0.9% INJ 100 ML IV SCH (16:33)
[2017-05-27] MEDS: oxyCODONE/ACETAMINOPHEN 10 MG/325 MG TAB PO PRN ×2 (18:45→23:24)
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
[2017-05-28] VITALS (14 sets, daily range): BP systolic 104–123; BP diastolic 50–72; PULSE 100–124; RESP 20–26; TEMP 97.6–100.2; O2SAT 90–98
[2017-05-28] MEDS: ENOXAPARIN SODIUM 30 MG/0.3 ML SYRINGE SQ SCH (00:06)
[2017-05-28] MEDS: CHLORHEXIDINE GLUCONATE 2 % 1 PACK (2 CLOTHS) TOP SCH (04:00)
[2017-05-28] MEDS: oxyCODONE/ACETAMINOPHEN 10 MG/325 MG TAB PO PRN ×2 (04:42→17:59)
[2017-05-28] MEDS: RESP: ALBUTEROL 2.5 MG/IPRATROPIUM 0.5 MG NEB (SCH) NEB ×4 (04:50→19:50)
[2017-05-28 05:01] LABS: BASOPHIL # 0.2 TH/MM3 (0-0.2); BASOPHIL % 1.4 % (0.0-2.0); EOSINOPHIL # 0.1 TH/MM3 (0-0.4); EOSINOPHIL % 1.1 % (0.0-4.0); HEMATOCRIT 26.9 % (39.0-51.0); LYMPH % 24.4 % (9.0-44.0); LYMPHOCYTE # 3.1 TH/MM3 (1.0-4.8); MEAN CELL VOLUME 83.1 FL (80.0-100.0); MEAN CORPUSCULAR HEMOGLOBIN 27.8 PG (27.0-34.0); MEAN CORPUSCULAR HGB CONC 33.4 % (32.0-36.0); MEAN PLATELET VOLUME 7.6 FL (7.0-11.0); MONOCYTE # 1.4 TH/MM3 (0-0.9); NEUT % 62.1 % (16.0-70.0); PLATELET COUNT 537 TH/MM3 (150-450); RED BLOOD COUNT 3.24 MIL/MM3 (4.50-5.90); RED CELL DISTRIBUTION WIDTH 14.5 % (11.6-17.2); WHITE BLOOD COUNT 12.9 TH/MM3 (4.0-11.0)
[2017-05-28 05:12] LABS: ALT (GPT) 41 U/L (12-78); AST (GOT) 70 U/L (15-37); BLOOD UREA NITROGEN 15 MG/DL (7-18); CALCIUM 8.2 MG/DL (8.5-10.1); CHLORIDE 108 MEQ/L (98-107); CREATININE 0.88 MG/DL (0.60-1.30); GLOMERULAR FILTRATION RATE 107 ML/MIN (>89); GLUCOSE,RANDOM 89 MG/DL (74-106); SODIUM (NA) 142 MEQ/L (136-145)
[2017-05-28 05:26] LABS: ALKALINE PHOSPHATASE 176 U/L (45-117); TOTAL BILIRUBIN ADULT 0.3 MG/DL (0.2-1.0); TOTAL PROTEIN 6.3 GM/DL (6.4-8.2)
[2017-05-28] MEDS: LACTATED RINGER'S 1000 ML INJ 1,000 ML IV SCH (05:32)
[2017-05-28] MEDS: ARTIFICIAL TEARS OPTH SOLN 15 ML BTL EACH EYE SCH ×3 (06:00→20:10)
[2017-05-28] MEDS: QUEtiapine FUMARATE 25 MG TAB PO SCH ×3 (06:00→20:09)
[2017-05-28] MEDS: LACTULOSE SYRUP 20 GM/30 ML CUP NG SCH (06:00)
[2017-05-28] MEDS: cloNIDine HCL 0.2 MG TAB PO SCH ×3 (06:10→20:10)
--- NOTE | 2017-05-28 06:14 | RADRPT ---
EXAM DATE/TIME: 05/28/2017 04:57 [facility] COMPARISON: CHEST SINGLE AP, May 27, 2017, 5:03. INDICATIONS : Short of breath. MEDICAL HISTORY : None. SURGICAL HISTORY : None. ENCOUNTER: Subsequent ACUITY: 4 - 6 days PAIN SCORE: 0/10 LOCATION: Bilateral chest FINDINGS: Again seen is a right lower lobe infiltrate which is unchanged. Left lung is clear. No effusions. Hea rt is normal in size. CONCLUSION: Unchanged right lower lobe infiltrate. Ricyk River Jr., MD on May 28, 2017 at 6:12 Board Certified Radiologist. This report was verified electronically.
[2017-05-28] MEDS ORDERED: Vancomycin Consult Pharmacy 1 EA OTHER SCH (08:00)
--- NOTE | 2017-05-28 08:17 | PD.ORT.PN ---
Subjective Subjective Remarks POD 3 s/p removal of exfix with IMN of right femur and tibia POD 3 application of incisional wound vac right leg s/p right medial malleolus fracture extubated. awake and alert. minimal complaints. Objective Vitals Vital Signs Date Time Temp Pulse Resp B/P (MAP) Pulse Ox O2 Delivery O2 Flow Rate FiO2 05/28/17 06:00 106 05/28/17 04:00 98.6 112 25 120/64 (82) 90 05/28/17 04:00 112 05/28/17 02:00 110 05/28/17 00:00 124 05/28/17 00:00 99.6 124 24 123/59 (80) 90 05/27/17 22:00 120 05/27/17 21:50 95 Nasal Cannula 2.00 05/27/17 20:00 100.8 118 22 105/55 (72) 92 05/27/17 20:00 118 05/27/17 18:00 120 05/27/17 16:00 97 05/27/17 16:00 100.4 97 20 105/55 (72) 92 05/27/17 14:00 100 05/27/17 12:00 101.5 100 28 103/21 (48) 93 05/27/17 12:00 98 05/27/17 10:00 96 05/27/17 09:09 95 21 I/O 05/27/17 05/27/17 05/27/17 05/28/17 05/28/17 05/28/17 07:00 15:00 23:00 07:00 15:00 23:00 Intake Total 450 ml 354 ml 307.5 ml 1620 ml Output Total 1460 ml 2025 ml 1725 ml Balance -1010 ml 354 ml -1717.5 ml -105 ml Intake Oral 620 ml IV Total 450 ml 354 ml 307.5 ml 1000 ml Output Urine Total 1450 ml 2000 ml 1700 ml Drainage Total 10 ml 25 ml 25 ml # Bowel Movements 0 0 1 Result Diagram: 05/28/17 0244 05/28/17 0244 Imaging Last 24 hours Impressions Tibia/Fibula X-Ray 05/21/17 0000 Signed Impressions: Service Date/Time: Saturday, May 20, 2017 23:51 - CONCLUSION: Spot fluoroscopic images, as above. Del Wilson MD Femur X-Ray 05/21/17 0000 Signed Impressions: Service Date/Time: Saturday, May 20, 2017 23:51 - CONCLUSION: Spot fluoroscopic images, as above. Del Wilson MD Chest X-Ray 05/21/17 0000 Signed Impressions: Service Date/Time: Sunday, May 21, 2017 04:48 - CONCLUSION: No acute cardiopulmonary abnormality is identified. Del Wilson MD Maxillofacial CT 05/20/17 1501 Signed Impressions: Service Date/Time: Saturday, May 20, 2017 15:22 - CONCLUSION: Nasal bone fractures and nasal septal fracture suspected with septal deviation. Facial lacerations left perimandibular soft tissues. Possible sebaceous cyst on the right. Antwan Marcelino MD Head CT 05/20/17 1501 Signed Impressions: Service Date/Time: Saturday, May 20, 2017 15:22 - CONCLUSION: 1. No acute intracranial abnormality. 2. Please see the CT facial bones reported separately. Ricky River Jr., MD Chest CT 05/20/17 1501 Signed Impressions: Service Date/Time: Saturday, May 20, 2017 15:30 - CONCLUSION: No acute disease. Antwan Marcelino MD Cervical Spine CT 05/20/17 1501 Signed Impressions: Service Date/Time: Saturday, May 20, 2017 15:22 - CONCLUSION: Normal examination. Antwan Marcelino MD Abdomen/Pelvis CT 05/20/17 1501 Signed Impressions: Service Date/Time: Saturday, May 20, 2017 15:30 - CONCLUSION: Normal examination. Antwan Marcelino MD Procedures Compartment pressures checked twice today: 1st check: -Anterior compartment : 36,38,42 mmHg -Lateral Comparment: 32,34,34 mmHg 2nd Check: -Anterior Compartment: 30, 31, 30 mmHg -Lateral Compartment: 28, 29, 30 mmHg MAP - 86 BP 116/71 Objective Remarks RLE Large DANTE, short leg splint intact, bandages clean and dry. +wound vac with good seal. Wiggles great toes, slightly diminished sensation, some swelling of toes, Cap refill less than 2 secs Assessment & Plan Assessment and Plan 1) Right Femur Fracture s/p IMN - POD 3 2) Right Tibial Shaft Fx s/p IMN - POD 3 3) Right Medial Malleolus Fx -NWB RLE. -maintain splint and vac at all times -elevate at all times -vac settings: 100mmHg, low, 3:1 -will plan on leaving vac in place for at least 5 days -npo after MN -hold lovenox -consents -plan for possible surgery tomorrow for ankle Anthony Gama/Supervisor [employer] PA May 28, 2017 08:17
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
[2017-05-28] MEDS: POLYETHYLENE GLYCOL 17 GM PKG PO SCH ×2 (09:00→20:10)
[2017-05-28] MEDS: DOCUSATE SODIUM 50 MG/SENNA 8.6 MG TAB PO SCH ×2 (09:00→20:10)
[2017-05-28] MEDS: MAGNESIUM HYDROXIDE SUSP 30 ML CUP PO SCH ×3 (09:00→20:10)
[2017-05-28] MEDS: SODIUM CHLORIDE 0.9% FLUSH 10 ML FLUSH IV FLUSH SCH ×2 (09:00→20:10)
[2017-05-28] MEDS: FLUoxetine HCL 20 MG CAP PO SCH (09:37)
[2017-05-28] MEDS: PANTOPRAZOLE SOD 40 MG DELAYED RELEASE TAB PO SCH (09:37)
[2017-05-28] MEDS ORDERED: VANCOMYCIN INJ 1,500 MG in SODIUM CHLORID 0.9% 500 ML INJ 500 ML IV SCH (11:00)
[2017-05-28] MEDS: ACETAMINOPHEN 650 MG/20.3 ML UDC PO PRN ×2 (11:57→20:28)
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
[2017-05-28] MEDS: VALPROIC ACID 250 MG CAP PO SCH ×2 (14:40→20:10)
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
[2017-05-28] MEDS: cefTRIAXone INJ 2,000 MG in SODIUM CHLORIDE 0.9% INJ 100 ML IV SCH (16:04)
[2017-05-29] VITALS: BP 110/69; PULSE 100; PULSE 118; RESP 19; TEMP 99.1; O2SAT 97
[2017-05-29] MEDS: RESP: ALBUTEROL 2.5 MG/3 ML NEB (PRN) NEB (01:02)
[2017-05-29] MEDS: CHLORHEXIDINE GLUCONATE 2 % 1 PACK (2 CLOTHS) TOP SCH (01:20)
[2017-05-29] MEDS: oxyCODONE/ACETAMINOPHEN 10 MG/325 MG TAB PO PRN ×3 (01:46→13:08)
[2017-05-29 04:00] VITALS: BP 127/65; PULSE 114; RESP 15; TEMP 99.8; O2SAT 94
[2017-05-29] MEDS: RESP: ALBUTEROL 2.5 MG/IPRATROPIUM 0.5 MG NEB (SCH) NEB ×2 (04:46→08:50)
[2017-05-29 05:04] LABS: BICARBONATE 26.9 MEQ/L (21.0-32.0); CALCIUM 8.7 MG/DL (8.5-10.1); CREATININE 0.91 MG/DL (0.60-1.30)
[2017-05-29] MEDS: ARTIFICIAL TEARS OPTH SOLN 15 ML BTL EACH EYE SCH (05:20)
[2017-05-29] MEDS: QUEtiapine FUMARATE 25 MG TAB PO SCH ×2 (05:20→13:08)
[2017-05-29] MEDS: VALPROIC ACID 250 MG CAP PO SCH ×2 (05:20→13:09)
[2017-05-29] MEDS: ACETAMINOPHEN 650 MG/20.3 ML UDC PO PRN (05:20)
[2017-05-29] MEDS: cloNIDine HCL 0.2 MG TAB PO SCH ×2 (05:20→13:09)
[2017-05-29] MEDS ORDERED: POTASSIUM CHLORIDE 20 MEQ CONTROLLED RELEASE TAB PO ONE (05:45)
[2017-05-29 06:00] VITALS: PULSE 108
[2017-05-29] MEDS: MAGNESIUM HYDROXIDE SUSP 30 ML CUP PO SCH (07:29)
[2017-05-29] MEDS: DOCUSATE SODIUM 50 MG/SENNA 8.6 MG TAB PO SCH (07:29)
[2017-05-29] MEDS: POLYETHYLENE GLYCOL 17 GM PKG PO SCH (07:29)
[2017-05-29] MEDS ORDERED: XARE10TA PO (07:41)
[2017-05-29] MEDS ORDERED: COMMODE 3-IN-11 MIS (07:41)
[2017-05-29] MEDS ORDERED: HYDR-3583 PO (07:41)
[2017-05-29] MEDS ORDERED: WALKER/ADULT/FO1 MIS (07:41)
[2017-05-29] MEDS: SODIUM CHLORIDE 0.9% FLUSH 10 ML FLUSH IV FLUSH SCH (07:46)
[2017-05-29] MEDS: FLUoxetine HCL 20 MG CAP PO SCH (07:46)
[2017-05-29] MEDS: PANTOPRAZOLE SOD 40 MG DELAYED RELEASE TAB PO SCH (07:46)
--- NOTE | 2017-05-29 07:48 | PD.ORT.PN ---
Subjective Subjective Remarks POD 4 s/p removal of exfix with IMN of right femur and tibia POD 4 application of incisional wound vac right leg s/p right medial malleolus fracture extubated. awake and alert. minimal complaints. Objective Vitals Vital Signs Date Time Temp Pulse Resp B/P (MAP) Pulse Ox O2 Delivery O2 Flow Rate FiO2 05/29/17 06:00 108 05/29/17 04:00 99.8 114 15 127/65 (85) 94 05/29/17 00:00 99.1 100 19 110/69 (83) 97 05/29/17 00:00 118 05/28/17 22:00 115 05/28/17 20:00 99.7 112 20 115/56 (75) 96 05/28/17 20:00 108 05/28/17 19:50 97 21 05/28/17 18:00 115 05/28/17 16:00 107 05/28/17 16:00 100.2 107 23 104/50 (68) 98 05/28/17 14:00 107 05/28/17 12:00 113 05/28/17 12:00 97.6 113 26 121/67 (85) 94 05/28/17 10:00 122 05/28/17 09:38 96 21 05/28/17 08:00 99.7 100 26 118/72 (87) 96 05/28/17 08:00 100 I/O 05/28/17 05/28/17 05/28/17 05/29/17 05/29/17 05/29/17 07:00 15:00 23:00 07:00 15:00 23:00 Intake Total 1620 ml 515 ml 100 ml Output Total 1725 ml 0 ml 500 ml Balance -105 ml 515 ml 100 ml -500 ml Intake Oral 620 ml IV Total 1000 ml 515 ml 100 ml Output Urine Total 1700 ml 500 ml Drainage Total 25 ml 0 ml # Voids 4 # Bowel Movements 1 1 Result Diagram: 05/28/17 0244 05/29/17 0416 Imaging Last 24 hours Impressions Tibia/Fibula X-Ray 05/21/17 0000 Signed Impressions: Service Date/Time: Saturday, May 20, 2017 23:51 - CONCLUSION: Spot fluoroscopic images, as above. Del Wilson MD Femur X-Ray 05/21/17 0000 Signed Impressions: Service Date/Time: Saturday, May 20, 2017 23:51 - CONCLUSION: Spot fluoroscopic images, as above. Del Wilson MD Chest X-Ray 05/21/17 0000 Signed Impressions: Service Date/Time: Sunday, May 21, 2017 04:48 - CONCLUSION: No acute cardiopulmonary abnormality is identified. Del Wilson MD Maxillofacial CT 05/20/17 1501 Signed Impressions: Service Date/Time: Saturday, May 20, 2017 15:22 - CONCLUSION: Nasal bone fractures and nasal septal fracture suspected with septal deviation. Facial lacerations left perimandibular soft tissues. Possible sebaceous cyst on the right. Antwan Marcelino MD Head CT 05/20/17 1501 Signed Impressions: Service Date/Time: Saturday, May 20, 2017 15:22 - CONCLUSION: 1. No acute intracranial abnormality. 2. Please see the CT facial bones reported separately. Ricky River Jr., MD Chest CT 05/20/17 150 Signed Impressions: Service Date/Time: Saturday, May 20, 2017 15:30 - CONCLUSION: No acute disease. Antwan Marcelino MD Cervical Spine CT 05/20/17 1501 Signed Impressions: Service Date/Time: Saturday, May 20, 2017 15:22 - CONCLUSION: Normal examination. Antwan Marcelino MD Abdomen/Pelvis CT 05/20/17 1501 Signed Impressions: Service Date/Time: Saturday, May 20, 2017 15:30 - CONCLUSION: Normal examination. Antwan Marcelino MD Procedures Compartment pressures checked twice today: 1st check: -Anterior compartment : 36,38,42 mmHg -Lateral Comparment: 32,34,34 mmHg 2nd Check: -Anterior Compartment: 30, 31, 30 mmHg -Lateral Compartment: 28, 29, 30 mmHg MAP - 86 BP 116/71 Objective Remarks RLE Large DANTE, short leg splint intact, bandages clean and dry. +wound vac with good seal. Wiggles great toes, slightly diminished sensation, some swelling of toes, Cap refill less than 2 secs. vac removed at bedside. incision visualized. clean and healing well. small area of skin necrosis over medial malleolus and larger area posterior to medial malleolus Assessment & Plan Assessment and Plan 1) Right Femur Fracture s/p IMN - POD 4 2) Right Tibial Shaft Fx s/p IMN - POD 4 3) Right Medial Malleolus Fx -NWB RLE. -vac removed at bedside -due to area of necrosis over medial ankle, patient not safe for surgery at this time due to possible infection or wound complications -will have orthotech rebandage and resplint -patient will not be ready for surgery for at least a week -ortho clear for DC home and follow up on sunday with Dr Mulligan -scripts on chart and DC order placed -instructed patient and mother on NWB status and elevating foot to prevent swelling and further skin necrosis -will plan final surgery from outpatient basis. Anthony Gama/First Mari JOSEPH May 29, 2017 07:48
[2017-05-29 08:00] VITALS: BP 103/56; PULSE 104; RESP 20; TEMP 99.5; O2SAT 98
[2017-05-29 12:00] VITALS: BP 122/58; PULSE 90; RESP 19; TEMP 98.9; O2SAT 98
[2017-05-29] MEDS ORDERED: WHEEMIS3 (12:11)
--- NOTE | 2017-05-29 12:14 | HHI.FF ---
Face to Face Verification Diagnosis: (1) Tibia/fibula fracture (2) Femur fracture (3) Medial malleolar fracture Physical Therapy Order: Evaluate and Treat, Improve ambulation, Strength and gait training Home Health Nursing Order: Nursing assessment with vital signs I have seen patient Dax Padilla on 05/29/17. My clinical findings support the need for the requested home health care services because: Deconditioned w/ increased weakness Limited ability to care for self High risk of falls I certify that my clinical findings support that this patient is homebound because: Post-op weakness Unsteady gait/balance Remarks seen and examined with BOTTLE [employer]SEMBLER-agree with assessment and plan Prasad Marin May 29, 2017 12:14 Jeanne Barrow MD May 29, 2017 15:50
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
[2017-05-29] MEDS ORDERED: CEFU1TAB20 PO (14:42)
[2017-05-29] MEDS ORDERED: PERI PO (14:42)
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
[2017-05-29] MEDS ORDERED: CEFUROXIME AXETIL 500 MG TAB PO SCH (21:00)
[2017-05-29] MEDS ORDERED: PHARMACY ORDERED LAB ONE (22:45)
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
== END 2017-05-29 16:12 | disposition home health service (06) | DRG 956 ==
LOC: NEPI 14:56 → NEDA 15:39 → EDBD 15:39 → N03A 16:01
PROVIDERS: ADMIT Surgery; ATTEND Surgery
PROC: 0QSG35Z Reposition Right Tibia with External Fixation Device, Percutaneous Approach (ICD-10-PCS; 2017-05-20)
PROC: 0QDG0ZZ Extraction of Right Tibia, Open Approach (ICD-10-PCS; 2017-05-20)
PROC: 0QS Lower Bones, Reposition (ICD-10-PCS; principal; 2017-05-20 22:16)
PROC: 30233N1 Transfusion of Nonautologous Red Blood Cells into Peripheral Vein, Percutaneous Approach (ICD-10-PCS; 2017-05-22)
PROC: 0BH17EZ Insertion of Endotracheal Airway into Trachea, Via Natural or Artificial Opening (ICD-10-PCS; 2017-05-22)
PROC: 0NSBXZZ Reposition Nasal Bone, External Approach (ICD-10-PCS; 2017-05-22)
PROC: 09QKXZZ Repair Nasal Mucosa and Soft Tissue, External Approach (ICD-10-PCS; 2017-05-22)
PROC: 0HQ1XZZ Repair Face Skin, External Approach (ICD-10-PCS; 2017-05-22)
PROC: 09QK0ZZ Repair Nasal Mucosa and Soft Tissue, Open Approach (ICD-10-PCS; 2017-05-22)
PROC: 0JQ10ZZ Repair Face Subcutaneous Tissue and Fascia, Open Approach (ICD-10-PCS; 2017-05-22)
PROC: 0NSBXZZ Reposition Nasal Bone, External Approach (ICD-10-PCS; 2017-05-22)
PROC: 5A1955Z Respiratory Ventilation, Greater than 96 Consecutive Hours (ICD-10-PCS; 2017-05-22 16:16)
PROC: 0QSG06Z Reposition Right Tibia with Intramedullary Internal Fixation Device, Open Approach (ICD-10-PCS; 2017-05-25)
PROC: 0QS806Z Reposition Right Femoral Shaft with Intramedullary Internal Fixation Device, Open Approach (ICD-10-PCS; 2017-05-25)
PROC: 0QP8X5Z Removal of External Fixation Device from Right Femoral Shaft, External Approach (ICD-10-PCS; 2017-05-25)
PROC: 0QPGX5Z Removal of External Fixation Device from Right Tibia, External Approach (ICD-10-PCS; 2017-05-25)
DX: S72.351A Displaced comminuted fracture of shaft of right femur, initial encounter for closed fracture (principal); S27.321A Contusion of lung, unilateral, initial encounter; J96.00 Acute respiratory failure, unspecified whether with hypoxia or hypercapnia; J69.0 Pneumonitis due to inhalation of food and vomit; A41.9 Sepsis, unspecified organism; G93.40 Encephalopathy, unspecified; S82.251B Displaced comminuted fracture of shaft of right tibia, initial encounter for open fracture type I or II; S82.451B Displaced comminuted fracture of shaft of right fibula, initial encounter for open fracture type I or II; M62.82 Rhabdomyolysis; S02.2XXB Fracture of nasal bones, initial encounter for open fracture; S82.51XB Displaced fracture of medial malleolus of right tibia, initial encounter for open fracture type I or II; E87.6 Hypokalemia; S01.412A Laceration without foreign body of left cheek and temporomandibular area, initial encounter; F12.10 Cannabis abuse, uncomplicated; F17.200 Nicotine dependence, unspecified, uncomplicated; F15.10 Other stimulant abuse, uncomplicated; K59.00 Constipation, unspecified; E88.09 Other disorders of plasma-protein metabolism, not elsewhere classified; E87.70 Fluid overload, unspecified; D64.9 Anemia, unspecified; R40.2412 Glasgow coma scale score 13-15, at arrival to emergency department; R41.3 Other amnesia; B95.61 Methicillin susceptible Staphylococcus aureus infection as the cause of diseases classified elsewhere; R45.1 Restlessness and agitation; Y92.410 Unspecified street and highway as the place of occurrence of the external cause; V29.9XXA Motorcycle rider (driver) (passenger) injured in unspecified traffic accident, initial encounter; J34.2 Deviated nasal septum
CPT/HCPCS: 31500; 36430; 36600; 70450; 70486; 71045; 71260; 72125; 72170; 73551; 73552; 73590; 74018; 74177; 75635; 76000; 76937; 80048; 80053; 80307; 81001; 82550; 82552; 82805; 83735; 84100; 85007; 85014; 85018; 85025; 85027; 85610; 85730; 86403; 86850; 86900; 86901; 86920; 87040; 87070; 87077; 87086; 87147; 87186; 87205; 90471; 90715; 94002; 94003; 94150; 94640; 94664; 94667; 94668; 96374; 96375; C1713; C9113; J0131; J0330; J0690; J0696; J1100; J1580; J1650; J1885; J1940; J2250; J2370; J3010; J3370; J7030; J7040; J7050; J7120; J7613; L0150; L8699; P9016; P9045; Q9967